=== PATIENT | female | born 1965 | race Caucasian/White ===

== ENCOUNTER 2016-02-27 07:07 | Inpatient (IN) | payer OTHER ==
[2016-01-22 14:52] VITALS: BMI 25.0
[~2016-02-27] VITALS: Ht 162.6 cm; Wt 67.7 kg
[2016-02-27] VITALS (9 sets, daily range): BP systolic 93–103; BP diastolic 53–64; PULSE 80–111; TEMP 36.1–37.8; O2SAT 93–100; Ht 162.6 cm; Wt 67.7 kg
[~2016-02-27 07:07] MED LIST: BACL10TA PO; CETI10TA84 PO; CHOL1000 PO; CLINDAMYCIN 600 MG/54 ML D5W 54 ML IV SCH; DOCU100C PO; GABA-113 PO; IBUP-1050 PO; LACTATED RINGER'S 1000ML IV SCH; LEVO150T PO; MELO7.5T5 PO; MORP30TA23 PO; SCOPOLAMINE 1.5 MG TDSY TD SCH; VICODIN PO
--- NOTE | 2016-02-27 07:31 | History & Physical Bridge Note ---
H&P Re-Evaluation Bridge Note: I have examined the patient, reviewed the History & Physical and in the interval since the performance of the History & Physical I have noted the following changes of clinical significance: No changes noted
--- NOTE | 2016-02-27 07:55 | HISTORY & PHYSICAL EXAMINATION ---
DATE OF ADMISSION: 02/27/2016 CHIEF COMPLAINT: Low back pain with bilateral leg pain going down to her feet. HISTORY OF PRESENT ILLNESS: Ms. Montgomery is a pleasant 51-year-old female who has a history significant for previous surgery performed by Dr. Bergman in 2011. She had done well initially after the surgery, but then started getting recurring symptoms. She takes oral morphine 30 mg 3 times daily for pain. She has been taking Ferris as well. She cannot stand for more than 5 minutes, she has failed conservative measures and at this point is considering surgical intervention. She denies any other numbness, tingling, paresthesias, or scottie weakness. PAST MEDICAL HISTORY: Significant for acid reflux, anemia, arthritis, GERD, heart murmur, hiatal hernia, thyroid disease, motion sickness. She had 3 previous C-sections, 3 lumpectomies, hysterectomy, 2 different foot surgeries in 2004 and 2015, back surgeries described above in 2011, hernia repair 2004 and 2011, hiatal hernia repair in 2011 as well. CURRENT MEDICATIONS: Include Neurontin, morphine, baclofen, hydrocodone, Synthroid, Meloxicam, Zyrtec, stool softener, ibuprofen. ALLERGIES: SHE HAS ALLERGIES TO SULFA, ASPIRIN, DIAZEPAM, TRIMETHOPRIM, PENICILLIN AND LATEX. REVIEW OF SYSTEMS: As per the patient's medical history. SOCIAL HISTORY: The patient is , 2 children. She denies any alcohol or illicit drug use. She typically smokes 5-8 cigarettes daily and has done so for the past 35 years. PHYSICAL EXAMINATION: GENERAL: She stands 5 feet 4, 150 pounds, stand with apparent level pelvis. Brijesh line is midline. Moves easily about the exam room. MUSCULOSKELETAL: Lower extremity motor exam reveals no focal atrophy. Strength and sensation both intact. Gait stable. Visual cox grossly intact. CARDIOVASCULAR EXAMINATION: Reveals no gross abnormalities. ABDOMEN: Soft, nontender. EXTREMITIES: Calves are soft and nontender. She has no nerve retention signs. Gait is stable. The patient is alert and oriented. Skin is intact with a well-healed midline incision. RADIOGRAPHIC IMAGES: Recent MRI of the lumbar spine is available for review. This reveals high signal in the L3-4 disc space. She is decompressed at the L4-5 and L5-S1 segments. There is left-sided disc herniation at L3-4 with inferior migration free fragment superimposed on moderate to severe baseline stenosis. ASSESSMENT: Adjacent level disease with breakdown at 3-4. PLAN: At this point, she has failed conservative measures, is considering surgical intervention. Surgically would consider performing lumbar decompression at L3-4 segment, removal of old hardware, and continuation of fusion from L3 back down to the sacrum as she is not solidly fused. Main benefit of this approach is significant chance for reduction of her radicular complaints. We discussed the risks of surgery as well. At this point would like to proceed with surgical intervention. JULIEN
[2016-02-27] MEDS ORDERED: ONDANSETRON INJ 2 MG/ML 2 ML VIAL ONE ×2 (08:15→12:43)
[2016-02-27] MEDS ORDERED: NEOSTIGMINE METHYLSULFATE 1 MG/ML 10ML VIAL ONE (08:15)
[2016-02-27] MEDS ORDERED: GLYCOPYRROLATE INJ 0.2 MG/ML VIAL ONE (08:15)
[2016-02-27] MEDS ORDERED: MIDAZOLAM HCL 1 MG/ML 2ML VIAL ONE (08:15)
[2016-02-27] MEDS ORDERED: ROCURONIUM BROMIDE 10 MG/ML 5 ML VIAL ONE ×2 (08:15→12:05)
[2016-02-27] MEDS ORDERED: PROPOFOL IV EMULSION 10 MG/ML 20 ML VIAL IV ONE (08:15)
[2016-02-27] MEDS ORDERED: DEXAMETHASONE SOD INJ 4 MG/ML VIAL ONE (08:15)
[2016-02-27] MEDS ORDERED: LIDOCAINE HCL 2% 2 ML VIAL (20MG/ML) ONE (08:15)
[2016-02-27] MEDS ORDERED: FENTANYL CITRATE INJ 50 MCG/1 ML 2 ML VIAL ONE ×2 (08:15→10:50)
[2016-02-27 08:45] LABS: BUN/CREATININE RATIO 16.5 (10-20); CALCIUM 9.1 mg/dl (8.5-10.1); CREATININE 0.68 mg/dl (0.60-1.20); POTASSIUM 3.9 mmol/L (3.5-5.1)
[2016-02-27] MEDS ORDERED: ALBUT/IPRATROP 3MG/0.5MG NEB 3 ML VIAL INH ONE (09:00)
[2016-02-27] MEDS ORDERED: ATROPINE SULFATE 0.1 MG/ML 5ML SYR IV PRN (09:15)
[2016-02-27] MEDS ORDERED: EpHEDrine SULFATE INJ 50 MG/ML AMP IV PRN (09:15)
[2016-02-27] MEDS ORDERED: FENTANYL CITRATE INJ 50 MCG/1 ML 2 ML VIAL IV PRN (09:15)
[2016-02-27] MEDS ORDERED: HYDROmorphone INJ 1 MG/ML SYR IV PRN ×2 (09:15→14:15)
[2016-02-27] MEDS ORDERED: ONDANSETRON INJ 2 MG/ML 2 ML VIAL IV PRN (09:15)
[2016-02-27] MEDS ORDERED: HYDROmorphone INJ 2 MG/ML SYR/VIAL ONE (10:09)
[2016-02-27] MEDS ORDERED: ESMOLOL HCL 10 MG/ML 10 ML VIAL ONE (10:38)
[2016-02-27] MEDS ORDERED: SODIUM CHLORIDE 0.9% INJ 10 ML VIAL ONE (10:38)
[2016-02-27] MEDS ORDERED: METOPROLOL TARTRATE 1 MG/ML VIAL ONE (10:38)
[2016-02-27] MEDS ORDERED: BUPIVACAINE/EPINEPHRINE 0.5% MPF 1:200,000 30 ML VIAL INJ ONE (10:46)
[2016-02-27] MEDS ORDERED: BACITRACIN 50000 UNIT VIAL IR ONE (12:44)
[2016-02-27] MEDS ORDERED: FLOSEAL HEMOSTATIC MATRIX 10ML TOP ONE (12:44)
--- NOTE | 2016-02-27 13:08 | [facility] Post Operative Brief Note ---
Immediate Operative Summary Operative Date Feb 27, 2016. Pre-Operative Diagnosis Adjacent level disease with breakdown at L3-L4 Post-Operative Diagnosis same as preop Procedure(s) Performed L3-L4 Lumbar Decompression; L4-S1 Hardware removal; L3-S1 Posterior reinstrumentation; L3-L4 and L4-L5 interbody fusion; use of Bone Morphogenetic Protein and Valerie allograft Surgeon Dr. Thompson Cell Tender Surgeon(s) Telly Wolf PA-C Estimated Blood Loss 300 ml Findings stenosis/non union Specimens A: Removed hardware
[2016-02-27] MEDS ORDERED: hydrOXYzine HCL 25 MG TAB PO PRN (13:15)
[2016-02-27] MEDS ORDERED: FAMOTIDINE 20 MG TAB PO PRN (13:15)
[2016-02-27] MEDS ORDERED: BISACODYL 10 MG SUPP PR PRN (13:15)
[2016-02-27] MEDS ORDERED: DO NOT ADMINISTER PNEUMOCOCCAL VACCINE PRN ×2 (13:15)
[2016-02-27] MEDS ORDERED: ACETAMINOPHEN IV 100 ML IV PRN (13:15)
[2016-02-27] MEDS ORDERED: LORAZEPAM INJ 0.5 MG in SYRINGE 0.75 ML IV PRN (13:15)
[2016-02-27] MEDS ORDERED: LORAZEPAM 0.5 MG TAB PO PRN (13:15)
[2016-02-27] MEDS ORDERED: SOD PHOSPHATE/SOD BIPHOSPHATE ENEMA 132 ML BTL PR PRN (13:15)
[2016-02-27] MEDS ORDERED: MAGNESIUM HYDROXIDE SUSP 30 ML UDC PO PRN (13:15)
[2016-02-27] MEDS ORDERED: DO NOT ADMINISTER FLU VACCINE PRN ×3 (13:15)
[2016-02-27] MEDS ORDERED: ALUMINUM/MAGNESIUM SUSP 30 ML UDC PO PRN (13:15)
[2016-02-27] MEDS ORDERED: PROMETHAZINE HCL INJ 12.5 MG in SODIUM CHLORIDE 0.9% 50ML 50 ML IV PRN (13:15)
[2016-02-27] MEDS ORDERED: NALOXONE HCL 0.4 MG/1 ML VIAL/CARP IV PRN ×2 (13:15)
[2016-02-27] MEDS ORDERED: HYDROmorphone HCL 0.5MG/ML 50 ML CASSETTE ONE (13:16)
--- NOTE | 2016-02-27 13:42 | DIAGNOSTIC IMAGING REPORT ---
LUMBAR SPINE, INTRAOPERATIVE FLUOROSCOPY HISTORY: L3-S1 decompression and fusion. FLUOROSCOPY TIME: 25 seconds. FINDINGS: Intraoperative fluoroscopy was provided for the lumbar spine. 2 fluoroscopic spot images were obtained. Posterior decompression and fusion from L3 through S1. There are pedicle screws at L3, L5, and S1. The hardware appears intact. IMPRESSION: Fluoroscopy provided for a L3-S1 posterior decompression and fusion. Electronically signed by: Ranjith Gustafson M.D. 02/27/2016 1:40 PM Dictated Date/Time: 02/27/2016 1:39 PM
[2016-02-27] MEDS: HYDROmorphone HCL 0.5MG/ML 50 ML CASSETTE IV PRN ×3 (14:15→22:53)
--- NOTE | 2016-02-27 14:16 | Anesthesiology Progress Note ---
Anesthesia Post Op Note Date & Time Feb 27, 2016 at 14:15 Vital Signs Pain Intensity: 3 Vital Signs Past 12 Hours Date Time Temp Pulse Resp B/P Pulse Ox O2 Delivery O2 Flow Rate FiO2 02/27/16 13:50 36.5 107/65 02/27/16 13:46 84 16 02/27/16 13:46 82 16 99 02/27/16 13:44 101/63 02/27/16 13:41 82 13 98 02/27/16 13:41 83 13 02/27/16 13:38 104/63 02/27/16 13:36 85 20 02/27/16 13:36 85 20 100 02/27/16 13:33 119/65 02/27/16 13:31 76 11 02/27/16 13:31 76 11 100 02/27/16 13:28 106/56 02/27/16 13:26 91 11 100 02/27/16 13:26 90 11 02/27/16 13:23 116/67 02/27/16 13:21 78 10 100 02/27/16 13:21 78 10 02/27/16 13:18 105/64 02/27/16 13:16 80 10 02/27/16 13:16 80 10 100 02/27/16 13:13 122/73 02/27/16 13:11 84 12 98 02/27/16 13:11 84 12 02/27/16 13:09 114/65 02/27/16 13:06 36.4 86 12 114/65 99 Mask 10 02/27/16 07:58 36.9 94 20 99/62 93 Room Air Notes Mental Status: alert / awake / arousable, participated in evaluation Pt Amnestic to Procedure: Yes Nausea / Vomiting: adequately controlled Pain: adequately controlled Airway Patency, RR, SpO2: stable & adequate BP & HR: stable & adequate Hydration State: stable & adequate Anesthetic Complications: no major complications apparent
--- NOTE | 2016-02-27 14:18 | OPERATIVE REPORT ---
DATE OF OPERATION: 02/27/2016 PREOPERATIVE DIAGNOSIS: Spinal stenosis. POSTOPERATIVE DIAGNOSIS: Same with evidence of nonunion, L4-L5. PROCEDURES PERFORMED: 1. Removal of posterior segmental instrumentation, L4-L5 and L5-S1. 2. Exploration of fusion, L4-L5 and L5-S1. 3. Revision decompression, medial facetectomy and foraminotomies, L3-L4 and L4-L5. 4. Posterior spinal fusion, L3-L4, L4-L5, and L5-S1. 5. Placement of posterior segmental instrumentation using Orthros rods and screws, L3 to S1 including crosslink. 6. Interbody fusion, L3-L4 and L4-L5. 7. Placement of PEEK cage 12 x 22 at L3-L4 and 10 x 22 at L4-L5. 8. Placement of locally harvested morcellized autograft in the posterior gutters. 9. Placement of Infuse collagen sponge combined with Mastergraft in the posterior gutters and Valerie bone graft in the interbody space. SURGEON: Dr. Flo Thompson. SENIOR BACK END JAVA DEVELOPER: Tarik Wolf PA-C. Due to the complex nature of the procedure, the entire surgery was performed with the care assistant of CANDACE Brown. The commercial real estate assistant, under direct supervision, was involved in the actual performance of all aspects of the surgical procedure including hemostasis, tissue retraction and incision, instrument management, patient positioning, and wound closure. ANESTHESIA: General. DISPOSITION: The patient awakened and taken to PACU in stable condition. HISTORY OF PATIENT'S PROBLEMS: This is a 51-year-old female that presents with above-mentioned diagnosis. After failing an extensive course of nonoperative care, she elected to undergo the above-mentioned procedures. Risks, benefits, pros, cons, and alternatives were outlined in detail preoperatively. DESCRIPTION OF PROCEDURE: The patient was met preoperatively, case discussed and all questions were addressed. At that point, the patient was taken back to operative suite and after undergoing successful general intubation by the department of anesthesia, she was placed in prone position on Nito table atop Kushal frame. All bony prominences were well padded and the eyes were inspected to ensure there was no external pressure placed upon them. At this point, the lumbar spine was prepped and draped in the normal sterile fashion. Sharp dissection with the assistance of Bovie cautery was performed down to and exposing the instrumentation at the L4, L5 and S1 levels bilaterally, including the lamina and transverse processes of L3. Hardware was removed without difficulty. There was marked evidence of instability at the L4-L5 level as the L4 screws had no purchase whatsoever within the bone. Then, after identifying nonunion at L4-L5, we performed a revision complete laminectomy of L4 and L3 from a caudal to cephalad fashion, addressing severe lateral recess and foraminal stenosis. Pedicle screws were then placed at L3, L5 and S1 levels bilaterally with the assistance of fluoroscopy as the L4 pedicles were violated from screw migration previously. Through a transforaminal approach on the right, a complete diskectomy of L4-L5 was performed, endplates curetted to subcortical bleeding bone and a 10 x 22 mm PEEK cage filled with Valerie bone grafting tapped into position. I then proceeded to L3-L4 and again through a transforaminal approach on the right, a complete diskectomy was performed, endplates curetted to subcortical bone and a 12 x 22 mm PEEK cage filled with Valerie bone grafting tapped into position. Appropriate size rods were contoured, placed and then compressed, and locked into final position bilaterally and transverse processes of L3, L4, L5 and S1 burred to subcortical bleeding bone. Infuse collagen sponge combined with Mastergraft and locally harvested morcellized autograft was placed in the posterior gutters, crosslink locked into position, 7 flat ALEXANDER drain inserted. Incision was closed with 1-0 Vicryl in the fascia, 2-0 Vicryl subcutaneously, and 4-0 Monocryl for final skin closure. Steri-Strips and sterile dressing placed. The patient was awakened and taken to PACU in stable condition. I attest to the content of the Intraoperative Record and any orders documented therein. Any exceptions are noted below. IRISHD
[2016-02-27] MEDS: SODIUM CHLORIDE 0.9% 1000ML 1,000 ML IV SCH (14:43)
[2016-02-27] MEDS ORDERED: INFLUENZA ADMINISTRATION CHARGE ONE (15:00)
[2016-02-27] MEDS ORDERED: INFLUENZA VIRUS QUAD VACCINE 0.5 ML SYR IM. ONE (15:00)
[2016-02-27] MEDS: LACTATED RINGER'S 1000ML 1,000 ML IV SCH ×2 (15:39→19:53)
[2016-02-27] MEDS: GABAPENTIN 300 MG CAP PO SCH ×2 (15:45→20:51)
[2016-02-27] MEDS: CHECK SCOPOLAMINE PATCH PLACEMENT SCH ×2 (15:47→23:24)
[2016-02-27] MEDS: BACLOFEN TAB 20 MG TAB PO SCH ×2 (17:15→20:52)
[2016-02-27] MEDS: CLINDAMYCIN IV 600 MG in DEXTROSE 5% ADD-VANTAGE 50ML 50 ML IV SCH (17:16)
[2016-02-27] MEDS: DOCUSATE SODIUM/SENNA 50/8.6MG TAB PO SCH (20:54)
[2016-02-27] MEDS: CETIRIZINE HCL 10 MG TAB PO SCH (21:36)
[2016-02-27] MEDS: ACETAMINOPHEN 500 MG TAB PO PRN (23:24)
[2016-02-28] VITALS (13 sets, daily range): BP systolic 80–107; BP diastolic 40–70; PULSE 117–125; TEMP 37.1–38.3; O2SAT 90–94
[2016-02-28] MEDS: CLINDAMYCIN IV 600 MG in DEXTROSE 5% ADD-VANTAGE 50ML 50 ML IV SCH (01:53)
[2016-02-28] MEDS ORDERED: NURSING VERBAL MED ORDER ONE (02:00)
[2016-02-28] MEDS: SODIUM CHLORIDE 0.9% 1000ML 1,000 ML IV SCH (02:40)
[2016-02-28] MEDS: LEVOTHYROXINE 150 MCG TAB PO SCH (05:58)
[2016-02-28] MEDS ORDERED: DC PCA ONE (06:00)
[2016-02-28] MEDS ORDERED: HYDROmorphone INJ 0.5 MG/0.5 ML SYR IV PRN ×2 (06:00→09:49)
[2016-02-28] MEDS: CHECK SCOPOLAMINE PATCH PLACEMENT SCH ×3 (07:29→23:20)
[2016-02-28 08:02] LABS: BASO % 0.2 %; BASO ABS # 0.02 K/uL (0-0.2); COMPLETE YES; EOS % 0.1 %; HEMATOCRIT 32.7 % (37-47); IG% 0.3 %; LYMPH % 11.5 %; LYMPH ABS # 1.27 K/uL (1.2-3.4); MEAN CELL VOLUME 89.1 fL (80-100); MEAN CORPUSCULAR HEMOGLOBIN 29.4 pg (25-34); MEAN PLATELET VOLUME 10.8 fL (7.4-10.4); MONO % 10.9 %; PLATELET COUNT 266 K/uL (130-400); RED BLOOD COUNT 3.67 M/uL (4.2-5.4); WHITE BLOOD COUNT 11.08 K/uL (4.8-10.8)
[2016-02-28] MEDS ORDERED: SODIUM CHLORIDE 0.9% 1000ML 1,000 ML IV SCH ×2 (08:15→08:45)
[2016-02-28 08:27] LABS: BUN/CREATININE RATIO 10.9 (10-20); CALCIUM 8.6 mg/dl (8.5-10.1); CREATININE 0.57 mg/dl (0.60-1.20); POTASSIUM 3.9 mmol/L (3.5-5.1)
[2016-02-28] MEDS: MoRPHine SULFATE CR 15 MG TAB (MS CONTIN) PO SCH ×2 (08:49→20:56)
[2016-02-28] MEDS ORDERED: MoRPHine SULFATE IR 15 MG TAB (IMMEDIATE RELEASE) PO SCH (09:00)
[2016-02-28] MEDS ORDERED: GABAPENTIN 300 MG CAP PO SCH (09:00)
[2016-02-28] MEDS ORDERED: BACLOFEN 10 MG TAB PO SCH (09:00)
[2016-02-28] MEDS ORDERED: NURSING DECISION MEDICATION ORDER SCH (09:00)
--- NOTE | 2016-02-28 09:00 | DIAGNOSTIC IMAGING REPORT ---
CHEST ONE VIEW PORTABLE CLINICAL HISTORY: Hypotension. Postop sepsis. COMPARISON STUDY: No previous studies for comparison. FINDINGS: The heart is normal in size. There is perihilar airspace opacities.. There are minor left basilar airspace opacities. There is no failure. There are no pleural effusions.[ IMPRESSION: Right perihilar and left basal airspace opacities, atelectatic versus inflammatory. Clinical and radiographic follow-up is recommended Electronically signed by: Will Camacho M.D. 02/28/2016 8:58 AM Dictated Date/Time: 02/28/2016 8:57 AM
--- NOTE | 2016-02-28 10:01 | History and Physical ---
History & Physical Date & Time of Service: Feb 28, 2016 at 10:00 Chief Complaint: Spinal Stenosis Primary Care Physician: Sae Gregg M.D. History of Present Illness Source: patient, hospital records Social History Smoking Status: Current Every Day Smoker Allergies Coded Allergies: Aspirin (Verified Allergy, Unknown, THROAT SWELLING, HIVES, ITCHING, ) BEE STING (Verified Allergy, Unknown, ANAPHYLAXIS, 02/27/16) Cyclobenzaprine (Verified Allergy, Unknown, MUSCLE SPASMS, 02/27/16) Diazepam (Verified Allergy, Unknown, GETS VIOLENT, 02/27/16) Latex1 -Allergic Contact Dermititis (Verified Allergy, Unknown, CONTACT - REDNESS RASH, 02/27/16) Penicillins (Verified Allergy, Unknown, ITCHING HIVES THROAT SWELLING, ) Prednisone (Verified Allergy, Unknown, FELT NUTS, 02/27/16) Shellfish (Verified Allergy, Unknown, SWELLING ITCHING THROAT HIVES, ) Sulfa Antibiotics (Verified Allergy, Unknown, HIVES SWELLING THROAT ITCHING, 02/27/16) Chlorpheniramine (Verified Adverse Reaction, Unknown, HYPERACTIVITY, ) Phenylephrine (Verified Adverse Reaction, Unknown, HYPERACTIVITY, 02/27/16) Phenylpropanolamine (Verified Adverse Reaction, Unknown, HYPERACTIVITY, ) Phenyltoloxamine (Verified Adverse Reaction, Unknown, HYPERACTIVITY, ) Home Medications Scheduled Baclofen (Lioresal), 20 MG PO TID Cetirizine (Zyrtec), 10 MG PO QPM Cholecalciferol (Vitamin D3), 1 TAB PO QAM Docusate Sodium (Stool Softener), 100 MG PO QAM Gabapentin (Neurontin), 900 MG PO TID Ibuprofen (Advil), 1,000 MG PO PRN Levothyroxine Sodium (Synthroid), 150 MCG PO QAM Meloxicam (Mobic), 15 MG PO NOON Morphine Sulfate (Ms Contin), 30 MG PO Q12 [Vicodin], 1 TAB PO Q6H Physical Exam Vital Signs Date Time Temp Pulse Resp B/P Pulse Ox O2 Delivery O2 Flow Rate FiO2 02/28/16 07:48 37.1 122 22 80/40 94 Nasal Cannula 3.0 02/28/16 07:15 94 Nasal Cannula 3.0 02/28/16 06:05 92 Nasal Cannula 3.0 02/28/16 03:10 37.6 119 16 106/63 90 Room Air 02/28/16 01:46 37.5 02/28/16 00:46 38.3 02/27/16 23:15 Room Air 02/27/16 22:45 37.8 111 16 103/64 96 Nasal Cannula 1.0 02/27/16 19:04 37.3 104 16 97/53 99 Nasal Cannula 3.0 02/27/16 17:08 36.8 90 16 102/55 100 Nasal Cannula 3.0 02/27/16 16:11 36.8 86 20 93/59 98 Nasal Cannula 3.0 02/27/16 15:30 100 Nasal Cannula 3.0 02/27/16 15:14 36.1 104 30 98/54 100 Nasal Cannula 3.0 02/27/16 14:40 36.2 80 24 101/64 98 Nasal Cannula 3.0 02/27/16 14:22 97 Nasal Cannula 3.0 02/27/16 14:17 36.7 88 16 96/60 98 Nasal Cannula 3.0 02/27/16 13:50 36.5 107/65 02/27/16 13:46 84 16 02/27/16 13:46 82 16 99 02/27/16 13:44 101/63 02/27/16 13:41 82 13 98 02/27/16 13:41 83 13 02/27/16 13:38 104/63 02/27/16 13:36 85 20 02/27/16 13:36 85 20 100 02/27/16 13:33 119/65 02/27/16 13:31 76 11 02/27/16 13:31 76 11 100 02/27/16 13:28 106/56 02/27/16 13:26 91 11 100 02/27/16 13:26 90 11 02/27/16 13:23 116/67 02/27/16 13:21 78 10 100 02/27/16 13:21 78 10 02/27/16 13:18 105/64 02/27/16 13:16 80 10 02/27/16 13:16 80 10 100 02/27/16 13:13 122/73 02/27/16 13:11 84 12 98 02/27/16 13:11 84 12 02/27/16 13:09 114/65 02/27/16 13:06 36.4 86 12 114/65 99 Mask 10 Diagnostics Laboratory Results Results Past 24 Hours Test 02/28/16 07:20 02/28/16 08:52 Range/Units White Blood Count 11.08 4.8-10.8 K/uL Red Blood Count 3.67 4.2-5.4 M/uL Hemoglobin 10.8 12.0-16.0 g/dL Hematocrit 32.7 37-47 % Mean Corpuscular Volume 89.1 80-100 fL Mean Corpuscular Hemoglobin 29.4 25-34 pg Mean Corpuscular Hemoglobin Concent 33.0 32-36 g/dl Platelet Count 266 130-400 K/uL Mean Platelet Volume 10.8 7.4-10.4 fL Neutrophils (%) (Auto) 77.0 % Lymphocytes (%) (Auto) 11.5 % Monocytes (%) (Auto) 10.9 % Eosinophils (%) (Auto) 0.1 % Basophils (%) (Auto) 0.2 % Neutrophils # (Auto) 8.54 1.4-6.5 K/uL Lymphocytes # (Auto) 1.27 1.2-3.4 K/uL Monocytes # (Auto) 1.21 0.11-0.59 K/uL Eosinophils # (Auto) 0.01 0-0.5 K/uL Basophils # (Auto) 0.02 0-0.2 K/uL RDW Standard Deviation 45.0 36.4-46.3 fL RDW Coefficient of Variation 13.8 11.5-14.5 % Immature Granulocyte % (Auto) 0.3 % Immature Granulocyte # (Auto) 0.03 0.00-0.02 K/uL Sodium Level 140 136-145 mmol/L Potassium Level 3.9 3.5-5.1 mmol/L Chloride Level 101 98-107 mmol/L Carbon Dioxide Level 30 21-32 mmol/L Anion Gap 9.0 3-11 mmol/L Blood Urea Nitrogen 6 7-18 mg/dl Creatinine 0.57 0.60-1.20 mg/dl Est Creatinine Clear Calc Drug Dose 109.2 ml/min Estimated GFR () 123.5 Estimated GFR (Non- 106.6 BUN/Creatinine Ratio 10.9 10-20 Random Glucose 104 70-99 mg/dl Calcium Level 8.6 8.5-10.1 mg/dl Lactic Acid Level 0.7 0.4-2.0 mmol/L Microbiology Results 02/28/16 Blood Culture, Received Pending 02/28/16 Blood Culture, Received Pending Impression Advanced Directives Existing Advance Directive: No Existing Living Will: No Existing Power of B2B Sales Representative: No VTE Prophylaxis VTE Risk Assessment Done? Y/N: Yes Risk Level: Low
--- NOTE | 2016-02-28 10:24 | Medical Consult ---
Consultation Date of Consultation: Feb 28, 2016. Attending Physician: Flo Thompson D.O. Reason for Consultation: Management of medical conditions History of Present Illness 51 Years old female has known past medical history of Hypothyroidism, Chronic DJD, Anemia, GERD underwent following surgical procedure by Dt. Thompson on 2016. L3-L4 Lumbar Decompression; L4-S1 Hardware removal; L3-S1 Posterior re- instrumentation; L3-L4 and L4-L5 interbody fusion; use of Bone Morphogenetic Protein and Valerie allograft Patient has been c/o lower back pain and spasms over night and it is radiating to the left lower extremity. She has been very uncomfortable and was found to have fever and low blood pressure in AM today. Denies any chest pain/pressure, SOB or diaphoresis. Could not sleep well last night due to back pain & spasms. 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 Social History Smoking Status: Current Every Day Smoker Smokeless Tobacco Use: No Alcohol Use: none Drug Use: none Marital Status: Housing Status: lives with family Allergies Coded Allergies: Aspirin (Verified Allergy, Unknown, THROAT SWELLING, HIVES, ITCHING, ) BEE STING (Verified Allergy, Unknown, ANAPHYLAXIS, 02/27/16) Cyclobenzaprine (Verified Allergy, Unknown, MUSCLE SPASMS, 02/27/16) Diazepam (Verified Allergy, Unknown, GETS VIOLENT, 02/27/16) Latex1 -Allergic Contact Dermititis (Verified Allergy, Unknown, CONTACT - REDNESS RASH, 02/27/16) Penicillins (Verified Allergy, Unknown, ITCHING HIVES THROAT SWELLING, ) Prednisone (Verified Allergy, Unknown, FELT NUTS, 02/27/16) Shellfish (Verified Allergy, Unknown, SWELLING ITCHING THROAT HIVES, ) Sulfa Antibiotics (Verified Allergy, Unknown, HIVES SWELLING THROAT ITCHING, 02/27/16) Chlorpheniramine (Verified Adverse Reaction, Unknown, HYPERACTIVITY, ) Phenylephrine (Verified Adverse Reaction, Unknown, HYPERACTIVITY, 02/27/16) Phenylpropanolamine (Verified Adverse Reaction, Unknown, HYPERACTIVITY, ) Phenyltoloxamine (Verified Adverse Reaction, Unknown, HYPERACTIVITY, ) Current Inpatient Medications Current Inpatient Medications Medications (Trade) Dose Ordered Sig/Autumn Route Start Time Stop Time Status Last Admin Dose Admin Miscellaneous (Remove Transderm-Scop Patch) 1 ea Q72H N/A 03/01/16 06:00 03/01/16 06:01 Miscellaneous Information (Check Scopolamine Patch Placement) 1 ea QS N/A 02/27/16 16:00 02/29/16 05:59 02/28/16 07:29 1 EA Ondansetron HCl (Zofran Inj) 4 mg Q6H PRN IV 02/27/16 13:15 03/28/16 13:14 Metoclopramide HCl 10 mg 10 mg Q6H PRN IV 02/27/16 13:15 03/28/16 13:14 Lorazepam/Syringe (Ativan Inj/ Syringe) 1 ml @ 1 mls/min Q8H PRN IV 02/27/16 13:15 03/28/16 13:14 Pneumococcal Polysaccharide Vaccine 1 ea PRN PRN N/A 02/27/16 13:15 03/28/16 13:14 Influenza Virus Vacc Triv Types A&B 1 ea PRN PRN N/A 02/27/16 13:15 03/28/16 13:14 Polyethylene (Miralax Powder Packet) 17 gm Q6 PO 02/29/16 06:00 03/30/16 05:59 Bisacodyl (Dulcolax Supp) 10 mg DAILY PRN MN 02/27/16 13:15 03/28/16 13:14 Magnesium Hydroxide (Milk Of Magnesia Susp) 30 ml DAILY PRN PO 02/27/16 13:15 03/28/16 13:14 Oxycodone HCl (Roxicodone Immediate Rel Tab) 5-10mg prn moderate to sev... Q4H PRN PO 02/28/16 06:00 03/13/16 05:59 Acetaminophen 1000 mg 1,000 mg Q8H PRN PO 02/27/16 13:15 03/28/16 13:14 02/27/16 23:24 1,000 MG Acetaminophen (Ofirmev Iv) 100 ml @ 400 mls/hr Q8H PRN IV 02/27/16 13:15 03/28/16 13:14 Naloxone HCl (Narcan Inj) 0.1 mg Q5M PRN IV 02/27/16 13:15 03/28/16 13:14 Senna/Docusate Sodium (Senokot S Tab) 2 tab HS PO 02/27/16 21:00 03/28/16 20:59 02/27/16 20:54 2 TAB Sodium Biphosphate/ Sodium Phosphate (Fleet Enema) 132 ml ONE PRN MN 02/27/16 13:15 03/28/16 13:14 Hydroxyzine HCl (Vistaril Tab) 25 mg Q8H PRN PO 02/27/16 13:15 03/28/16 13:14 Al Hydroxide/Mg Hydroxide (Maalox Susp) 30 ml Q6H PRN PO 02/27/16 13:15 03/28/16 13:14 Famotidine (Pepcid Tab) 20 mg Q12 PRN PO 02/27/16 13:15 03/28/16 13:14 Diphenhydramine HCl (Benadryl Cap) 25 mg Q6H PRN PO 02/27/16 13:15 03/28/16 13:14 Cetirizine HCl (zyrTEC TAB) 10 mg QPM PO 02/27/16 21:00 03/28/16 20:59 02/27/16 21:36 10 MG Levothyroxine Sodium (Synthroid Tab) 150 mcg DAILYBB PO 02/28/16 06:00 03/29/16 05:59 02/28/16 05:58 150 MCG Morphine Sulfate (Oramorph Sr Tab) 30 mg Q12 PO 02/28/16 09:00 03/13/16 08:59 02/28/16 08:49 30 MG Ketorolac Tromethamine 30 mg 30 mg Q6H PRN IV 02/28/16 08:00 Sodium Chloride (Nss 1000ml) 1,000 ml @ 100 mls/hr Q10H IV 02/28/16 08:45 02/28/16 12:38 02/28/16 08:45 200 MLS/HR Baclofen (Lioresal Tab) 10 mg TID PO 02/28/16 09:00 03/29/16 08:59 02/28/16 09:00 10 MG Gabapentin (Neurontin Cap) 600 mg TID PO 02/28/16 09:00 03/29/16 08:59 02/28/16 09:00 600 MG Hydromorphone HCl (Dilaudid Inj) 0.5 mg Q4 PRN IV 02/28/16 09:49 03/13/16 09:48 Review of Systems See HPI for pertinent positives & negatives. A total of 10 systems reviewed and were otherwise negative. Physical Exam Date Time Temp Pulse Resp B/P Pulse Ox O2 Delivery O2 Flow Rate FiO2 02/28/16 07:48 37.1 122 22 80/40 94 Nasal Cannula 3.0 02/28/16 07:15 94 Nasal Cannula 3.0 02/28/16 06:05 92 Nasal Cannula 3.0 02/28/16 03:10 37.6 119 16 106/63 90 Room Air 02/28/16 01:46 37.5 02/28/16 00:46 38.3 02/27/16 23:15 Room Air 02/27/16 22:45 37.8 111 16 103/64 96 Nasal Cannula 1.0 02/27/16 19:04 37.3 104 16 97/53 99 Nasal Cannula 3.0 02/27/16 17:08 36.8 90 16 102/55 100 Nasal Cannula 3.0 02/27/16 16:11 36.8 86 20 93/59 98 Nasal Cannula 3.0 02/27/16 15:30 100 Nasal Cannula 3.0 02/27/16 15:14 36.1 104 30 98/54 100 Nasal Cannula 3.0 02/27/16 14:40 36.2 80 24 101/64 98 Nasal Cannula 3.0 02/27/16 14:22 97 Nasal Cannula 3.0 02/27/16 14:17 36.7 88 16 96/60 98 Nasal Cannula 3.0 02/27/16 13:50 36.5 107/65 02/27/16 13:46 84 16 02/27/16 13:46 82 16 99 02/27/16 13:44 101/63 02/27/16 13:41 82 13 98 02/27/16 13:41 83 13 02/27/16 13:38 104/63 02/27/16 13:36 85 20 02/27/16 13:36 85 20 100 02/27/16 13:33 119/65 02/27/16 13:31 76 11 02/27/16 13:31 76 11 100 02/27/16 13:28 106/56 02/27/16 13:26 91 11 100 02/27/16 13:26 90 11 02/27/16 13:23 116/67 02/27/16 13:21 78 10 100 02/27/16 13:21 78 10 02/27/16 13:18 105/64 02/27/16 13:16 80 10 02/27/16 13:16 80 10 100 02/27/16 13:13 122/73 02/27/16 13:11 84 12 98 02/27/16 13:11 84 12 02/27/16 13:09 114/65 02/27/16 13:06 36.4 86 12 114/65 99 Mask 10 General Appearance: WD/WN, + moderate distress (Due to pain & spasms.) Head: normocephalic, atraumatic Eyes: normal inspection, PERRL, EOMI, sclerae normal ENT: normal ENT inspection, hearing grossly normal, TMs normal, pharynx normal Neck: supple, no adenopathy, thyroid normal, no JVD, trachea midline Respiratory/Chest: chest non-tender, lungs clear, normal breath sounds, no respiratory distress, no accessory muscle use Cardiovascular: no edema, no gallop, no JVD, normal peripheral pulses, + tachycardia Abdomen/GI: normal bowel sounds, non tender, soft, no organomegaly Back: + pertinent finding (Could not do back examination as she could not sit for me.) Extremities/Musculoskelatal: normal inspection, no calf tenderness, no pedal edema Neurologic/Psych: alert, oriented x 3, + pertinent finding (Pain, touch in lower extermities is intact. Can move all 4 extremities.) Skin: normal color, warm/dry, no rash Lymphatic: no adenopathy Laboratory Results Last 24 Hours Test 02/28/16 07:20 02/28/16 08:52 White Blood Count 11.08 K/uL Red Blood Count 3.67 M/uL Hemoglobin 10.8 g/dL Hematocrit 32.7 % Mean Corpuscular Volume 89.1 fL Mean Corpuscular Hemoglobin 29.4 pg Mean Corpuscular Hemoglobin Concent 33.0 g/dl Platelet Count 266 K/uL Mean Platelet Volume 10.8 fL Neutrophils (%) (Auto) 77.0 % Lymphocytes (%) (Auto) 11.5 % Monocytes (%) (Auto) 10.9 % Eosinophils (%) (Auto) 0.1 % Basophils (%) (Auto) 0.2 % Neutrophils # (Auto) 8.54 K/uL Lymphocytes # (Auto) 1.27 K/uL Monocytes # (Auto) 1.21 K/uL Eosinophils # (Auto) 0.01 K/uL Basophils # (Auto) 0.02 K/uL RDW Standard Deviation 45.0 fL RDW Coefficient of Variation 13.8 % Immature Granulocyte % (Auto) 0.3 % Immature Granulocyte # (Auto) 0.03 K/uL Sodium Level 140 mmol/L Potassium Level 3.9 mmol/L Chloride Level 101 mmol/L Carbon Dioxide Level 30 mmol/L Anion Gap 9.0 mmol/L Blood Urea Nitrogen 6 mg/dl Creatinine 0.57 mg/dl Est Creatinine Clear Calc Drug Dose 109.2 ml/min Estimated GFR () 123.5 Estimated GFR (Non- 106.6 BUN/Creatinine Ratio 10.9 Random Glucose 104 mg/dl Calcium Level 8.6 mg/dl Lactic Acid Level 0.7 mmol/L Assessment & Plan Hypotension/Tachycardia: Likely due to combination of Pain/spasms, Fever & Anxiety. -Continue with IVF. -Re-check H/H in afternoon again. -Adjusted dose of Dilaudid as well other medications which can cause hypotension. -Blood cultures done -Will monitor for any infectious source. S/P Lumbar Decompression Surgery: POD # 1. -Pain management under monitoring so it does not cause hypotension -PT/OT as per Surgical team -Monitor H/H Hypothyroidism: Continue Levoxyl. History GERD: Continue PPI. Code Status: FULL CODE DVT Prophylaxis: per Surgical team. Thank you for this consultation. We will follow the patient with you during their hospital stay. You can reach a member of the [facility] Team 06/09 via pager @ [phone]. Patient will be followed by Dr. Bell.
[2016-02-28] MEDS: NICOTINE 14 MG/24 HR TDSY TD SCH (11:37)
[2016-02-28] MEDS: KETOROLAC TROMETHAMINE 30 MG/ML VIAL IV PRN ×2 (12:24→19:24)
[2016-02-28] MEDS: BACLOFEN 10 MG TAB PO SCH ×3 (12:26→19:26)
[2016-02-28] MEDS: GABAPENTIN 300 MG CAP PO SCH ×3 (12:27→20:56)
[2016-02-28 14:30] LABS: HEMATOCRIT 31.3 % (37-47)
[2016-02-28] MEDS: OXYCODONE HCL IR 5 MG TAB (IMMEDIATE RELEASE) PO PRN ×2 (16:33→23:19)
[2016-02-28] MEDS: CETIRIZINE HCL 10 MG TAB PO SCH (21:15)
[2016-02-28] MEDS: DOCUSATE SODIUM/SENNA 50/8.6MG TAB PO SCH (21:15)
[2016-02-28] MEDS: ACETAMINOPHEN 500 MG TAB PO PRN (23:20)
[2016-02-29] VITALS (7 sets, daily range): BP systolic 113–128; BP diastolic 74–83; PULSE 107–127; TEMP 37–38; O2SAT 86–97
[2016-02-29] MEDS: POLYETHYLENE (MIRALAX) 17 GM PACK PO SCH ×4 (05:31→23:39)
[2016-02-29] MEDS: LEVOTHYROXINE 150 MCG TAB PO SCH (05:31)
[2016-02-29 05:53] LABS: BASO % 0.2 %; BASO ABS # 0.02 K/uL (0-0.2); COMPLETE YES; EOS % 1.1 %; HEMATOCRIT 31.3 % (37-47); IG% 0.4 %; LYMPH % 17.6 %; LYMPH ABS # 1.88 K/uL (1.2-3.4); MEAN CELL VOLUME 92.1 fL (80-100); MEAN CORPUSCULAR HGB CONC 32.6 g/dl (32-36); MONO % 10.9 %; NEUT % 69.8 %; PLATELET COUNT 250 K/uL (130-400); WHITE BLOOD COUNT 10.69 K/uL (4.8-10.8)
[2016-02-29 06:24] LABS: BUN/CREATININE RATIO 9.8 (10-20); CALCIUM 8.5 mg/dl (8.5-10.1); CREATININE 0.58 mg/dl (0.60-1.20); POTASSIUM 3.8 mmol/L (3.5-5.1)
[2016-02-29] MEDS: ONDANSETRON INJ 2 MG/ML 2 ML VIAL IV PRN ×2 (07:49→14:24)
[2016-02-29] MEDS: BACLOFEN 10 MG TAB PO SCH ×4 (08:30→19:24)
[2016-02-29] MEDS ORDERED: PROMETHAZINE HCL INJ 12.5 MG in SODIUM CHLORIDE 0.9% 50ML 50 ML IV ONE (09:00)
--- NOTE | 2016-02-29 09:19 | PROGRESS NOTE ---
DATE: 02/29/2016 Postop day 2. Back pain is controlled. Denies any leg pain at this time. Vital signs stable. T-max 38.0. ALEXANDER drained 60 mL. Hematocrit this a.m. is 31.3. On exam, she is somewhat nauseated today, but has good strength to testing in lower extremities. ASSESSMENT: Status post revision decompression and fusion lumbar spine. PLAN: At this time, we are going to increase her IV fluids, as she has been unable to eat and struggled with some emesis this morning. We will attempt physical therapy later this afternoon. Ideally, we will be able to change her dressing and discontinue drain Tuesday with hopes of returning home early next week.
[2016-02-29] MEDS: NICOTINE 14 MG/24 HR TDSY TD SCH (09:20)
[2016-02-29] MEDS: SODIUM CHLORIDE 0.9% 1000ML 1,000 ML IV SCH ×2 (09:20→15:29)
[2016-02-29] MEDS: GABAPENTIN 300 MG CAP PO SCH ×4 (10:22→21:29)
[2016-02-29] MEDS: MoRPHine SULFATE CR 15 MG TAB (MS CONTIN) PO SCH ×2 (11:53→21:34)
[2016-02-29] MEDS: METOCLOPRAMIDE HCL INJ 5 MG/ML 2 ML VIAL IV PRN ×2 (12:46→19:24)
[2016-02-29] MEDS: ONDANSETRON INJ 2 MG/ML 2 ML VIAL IV SCH ×2 (16:17→23:41)
--- NOTE | 2016-02-29 17:25 | Progress Note ---
Medicine Progress Note Date & Time of Visit: Feb 29, 2016 at 15:33. Subjective scheduled Zofran, cont IVF per Dr. Thompson order for 2 L this morning no increased work of breathing denies chest pain NVI bilat LEs yesterday back spasming was her main issue today it has been the intolerance to PO and vomiting denies back pain today Tm 38C could not tolerate PT no BM but passing flatus Objective Last 8 Hrs Date Time Temp Pulse Resp B/P Pulse Ox O2 Delivery O2 Flow Rate FiO2 02/29/16 14:54 38.0 127 18 120/76 86 Room Air 02/29/16 12:52 107 02/29/16 07:44 37.1 117 18 113/74 97 Room Air Physical Exam: GEN: WNWD, in no acute distress, alert and appropriate HEENT: NC/AT, normal sclerae CARDIO: tachy, S1/2 heard without m/g/r LUNGS: CTA bilaterally, no crackles, rales or wheezes, good diaphragmatic excursion ABD: soft, non-tender, non-distended, no rebound or guarding EXTREMITY: RP and DP palpable 2+ bilat, no LE swelling or edema, extremities are warm and well-perfused NEURO: extremities are NVI MUSC: good muscle tone, moves all extremities equally SKIN: warm and dry Laboratory Results: Last 24 Hours Test 02/29/16 05:28 White Blood Count 10.69 K/uL Red Blood Count 3.40 M/uL Hemoglobin 10.2 g/dL Hematocrit 31.3 % Mean Corpuscular Volume 92.1 fL Mean Corpuscular Hemoglobin 30.0 pg Mean Corpuscular Hemoglobin Concent 32.6 g/dl Platelet Count 250 K/uL Mean Platelet Volume 11.0 fL Neutrophils (%) (Auto) 69.8 % Lymphocytes (%) (Auto) 17.6 % Monocytes (%) (Auto) 10.9 % Eosinophils (%) (Auto) 1.1 % Basophils (%) (Auto) 0.2 % Neutrophils # (Auto) 7.46 K/uL Lymphocytes # (Auto) 1.88 K/uL Monocytes # (Auto) 1.17 K/uL Eosinophils # (Auto) 0.12 K/uL Basophils # (Auto) 0.02 K/uL RDW Standard Deviation 47.0 fL RDW Coefficient of Variation 14.1 % Immature Granulocyte % (Auto) 0.4 % Immature Granulocyte # (Auto) 0.04 K/uL Sodium Level 144 mmol/L Potassium Level 3.8 mmol/L Chloride Level 107 mmol/L Carbon Dioxide Level 30 mmol/L Anion Gap 7.0 mmol/L Blood Urea Nitrogen 6 mg/dl Creatinine 0.58 mg/dl Est Creatinine Clear Calc Drug Dose 107.3 ml/min Estimated GFR () 122.8 Estimated GFR (Non- 106.0 BUN/Creatinine Ratio 9.8 Random Glucose 106 mg/dl Calcium Level 8.5 mg/dl Assessment & Plan Tachycardia: Likely due to combination of Pain/spasms, Fever & Anxiety. She is also severely nautious today with frequent bouts of dry heaving. -Continue with IVF. -H/H is stable -pain control meds PRN--she is on her long acting morphine with breakthrough Lortab and feels pain is controlled at this time -Blood cultures -pending from yesterday when patient was hypotensive, tachy and febrile. -Will monitor for any infectious source, however, with no lower back pain, this is less likely -also considered PE post-op, however, she is not working to breathe, denies any chest pain, and has no calf tenderness with many other reasons to have tachycardia at this time Nausea: scheduled Zofran to stay ahead of the nausea. Reglan PRN. Phenergan IV tried this morning and didn't seem to work. S/P Lumbar Decompression Surgery: POD # 2. -Pain management under monitoring so it does not cause hypotension-continues on Gabapentin, Baclofen, Morphine and vicodin -PT/OT as per Surgical team -Monitor H/H Hypothyroidism: Continue Levothyroxine History GERD: Continue PPI. Code Status: FULL CODE DVT Prophylaxis: SCDs, however, would recommend chemoprophylaxis when surgery OK with this from a bleeding standpoint. Thank you for this consultation. We will follow the patient with you during their hospital stay. You can reach a member of the [facility] Hospitalist Team 06/09 via pager @ . Current Inpatient Medications: Current Inpatient Medications Medications (Trade) Dose Ordered Sig/Autumn Route Start Time Stop Time Status Last Admin Dose Admin Miscellaneous (Remove Transderm-Scop Patch) 1 ea Q72H N/A 03/01/16 06:00 03/01/16 06:01 Ondansetron HCl (Zofran Inj) 4 mg Q6H PRN IV 02/27/16 13:15 03/28/16 13:14 02/29/16 14:24 4 MG Metoclopramide HCl 10 mg 10 mg Q6H PRN IV 02/27/16 13:15 03/28/16 13:14 02/29/16 12:46 10 MG Lorazepam/Syringe (Ativan Inj/ Syringe) 1 ml @ 1 mls/min Q8H PRN IV 02/27/16 13:15 03/28/16 13:14 Pneumococcal Polysaccharide Vaccine 1 ea PRN PRN N/A 02/27/16 13:15 03/28/16 13:14 Influenza Virus Vacc Triv Types A&B 1 ea PRN PRN N/A 02/27/16 13:15 03/28/16 13:14 Polyethylene (Miralax Powder Packet) 17 gm Q6 PO 02/29/16 06:00 03/30/16 05:59 02/29/16 05:31 17 GM Bisacodyl (Dulcolax Supp) 10 mg DAILY PRN ND 02/27/16 13:15 03/28/16 13:14 Magnesium Hydroxide (Milk Of Magnesia Susp) 30 ml DAILY PRN PO 02/27/16 13:15 03/28/16 13:14 Oxycodone HCl (Roxicodone Immediate Rel Tab) 5-10mg prn moderate to sev... Q4H PRN PO 02/28/16 06:00 03/13/16 05:59 02/28/16 23:19 5 MG Acetaminophen 1000 mg 1,000 mg Q8H PRN PO 02/27/16 13:15 03/28/16 13:14 02/28/16 23:20 1,000 MG Acetaminophen (Ofirmev Iv) 100 ml @ 400 mls/hr Q8H PRN IV 02/27/16 13:15 03/28/16 13:14 Naloxone HCl (Narcan Inj) 0.1 mg Q5M PRN IV 02/27/16 13:15 03/28/16 13:14 Senna/Docusate Sodium (Senokot S Tab) 2 tab HS PO 02/27/16 21:00 03/28/16 20:59 02/28/16 21:15 2 TAB Sodium Biphosphate/ Sodium Phosphate (Fleet Enema) 132 ml ONE PRN ND 02/27/16 13:15 03/28/16 13:14 Hydroxyzine HCl (Vistaril Tab) 25 mg Q8H PRN PO 02/27/16 13:15 03/28/16 13:14 Al Hydroxide/Mg Hydroxide (Maalox Susp) 30 ml Q6H PRN PO 02/27/16 13:15 03/28/16 13:14 Famotidine (Pepcid Tab) 20 mg Q12 PRN PO 02/27/16 13:15 03/28/16 13:14 Diphenhydramine HCl (Benadryl Cap) 25 mg Q6H PRN PO 02/27/16 13:15 03/28/16 13:14 Cetirizine HCl (zyrTEC TAB) 10 mg QPM PO 02/27/16 21:00 03/28/16 20:59 02/28/16 21:15 10 MG Levothyroxine Sodium (Synthroid Tab) 150 mcg DAILYBB PO 02/28/16 06:00 03/29/16 05:59 02/29/16 05:31 150 MCG Morphine Sulfate (Oramorph Sr Tab) 30 mg Q12 PO 02/28/16 09:00 03/13/16 08:59 02/28/16 20:56 30 MG Ketorolac Tromethamine (Toradol Inj) 30 mg Q6H PRN IV 02/28/16 08:00 02/28/16 19:24 30 MG Hydromorphone HCl (Dilaudid Inj) 0.5 mg Q4 PRN IV 02/28/16 09:49 03/13/16 09:48 02/29/16 08:25 0.5 MG Baclofen (Lioresal Tab) 10 mg QIDM PO 02/28/16 12:30 03/29/16 12:29 02/28/16 19:26 10 MG Gabapentin (Neurontin Cap) 600 mg QID PO 02/28/16 13:00 03/29/16 12:59 02/28/16 20:56 600 MG Nicotine (Nicoderm Cq 14MG Patch) 1 patch QAM TD 02/28/16 10:30 03/29/16 10:29 02/29/16 09:20 1 PATCH Miscellaneous 1 ea 1 ea HS N/A 02/28/16 21:00 03/29/16 20:59 02/28/16 20:59 1 EA Sodium Chloride (Nss 1000ml) 1,000 ml @ 150 mls/hr Q6H40M IV 02/29/16 08:45 02/29/16 22:04 02/29/16 15:29 150 MLS/HR
[2016-02-29] MEDS: CETIRIZINE HCL 10 MG TAB PO SCH (21:30)
[2016-02-29] MEDS: DOCUSATE SODIUM/SENNA 50/8.6MG TAB PO SCH (21:30)
[2016-03-01 03:32] VITALS: BP 130/84; PULSE 116
[2016-03-01] MEDS: POLYETHYLENE (MIRALAX) 17 GM PACK PO SCH (05:51)
[2016-03-01] MEDS: LEVOTHYROXINE 150 MCG TAB PO SCH (05:52)
[2016-03-01] MEDS: METOCLOPRAMIDE HCL INJ 5 MG/ML 2 ML VIAL IV PRN (05:52)
[2016-03-01 06:19] LABS: HEMATOCRIT 30.3 % (37-47); MEAN CELL VOLUME 88.3 fL (80-100); MEAN CORPUSCULAR HEMOGLOBIN 28.9 pg (25-34); MEAN CORPUSCULAR HGB CONC 32.7 g/dl (32-36); MEAN PLATELET VOLUME 11.3 fL (7.4-10.4); PLATELET COUNT 302 K/uL (130-400); RED BLOOD COUNT 3.43 M/uL (4.2-5.4); WHITE BLOOD COUNT 12.84 K/uL (4.8-10.8)
[2016-03-01 06:48] LABS: BUN/CREATININE RATIO 14.2 (10-20); CALCIUM 8.6 mg/dl (8.5-10.1); CREATININE 0.41 mg/dl (0.60-1.20); MAGNESIUM 1.8 mg/dl (1.8-2.4); POTASSIUM 3.4 mmol/L (3.5-5.1)
--- NOTE | 2016-03-01 07:03 | PROGRESS NOTE ---
DATE: 02/28/2016 DATE: 02/28/2016. SUBJECTIVE: Ms. Montgomery is here postoperative day #1 status post removal of hardware L4-S1 with decompression L2-3 and continuation of fusion from L3-S1. She is having quite a bit in the way of left leg pain this morning. She is hyperesthetic along the anterior portion of the mathis in L4 distribution. She is also noted to be tachycardic and hypotensive. She has been getting her MS Contin every 12 hours 30 mg, as well as oxycodone for breakthrough. The patient is alert and oriented but in obvious distress. She has not had any other falls or injuries. OBJECTIVE: VITAL SIGNS: On exam last her vital signs last recorded were blood pressure 80/40 with a heart rate of 122, O2 sats are 94 on 3 liters nasal cannula. GENERAL: The patient is in obvious distress on exam. She is able to move her legs without difficulties, is hyperesthetic in the left anterior mathis. ALEXANDER drain is in place and last drainage recorded was 130. ABDOMEN: Soft, nontender. EXTREMITIES: Calves are soft and nontender. ASSESSMENT: The patient is having issues with pain control. PLAN: At this point, will add Toradol. Discussed with the pharmacist the fact that she had a reaction to aspirin, but has taken ibuprofen in the past without difficulties. Will add Toradol to her regimen at this point, continue oxycodone, her MS Contin and make sure she gets her Ativan as well. I placed a medical consult to help manage her blood pressure issues as well. We should be able to get her symptoms back under control with continued narcotic and anti-inflammatory use. We will continue to monitor.
[2016-03-01 07:06] VITALS: BP 139/80; PULSE 115; TEMP 37.1; O2SAT 93
[2016-03-01] MEDS ORDERED: NURSING VERBAL MED ORDER ONE (07:15)
--- NOTE | 2016-03-01 07:51 | Anesthesiology Progress Note ---
Anesthesia Post Op Note Date & Time Mar 01, 2016 at 07:50 Vital Signs Pain Intensity: 0.0 Vital Signs Past 12 Hours Date Time Temp Pulse Resp B/P Pulse Ox O2 Delivery O2 Flow Rate FiO2 03/01/16 07:15 Room Air 03/01/16 07:06 37.1 115 18 139/80 93 Room Air 03/01/16 03:32 116 130/84 02/29/16 23:30 Room Air 02/29/16 22:50 37.4 121 18 128/83 92 Room Air Notes Mental Status: alert / awake / arousable, participated in evaluation Pt Amnestic to Procedure: Yes Nausea / Vomiting: adequately controlled, improving with treatment Pain: adequately controlled Airway Patency, RR, SpO2: stable & adequate BP & HR: stable & adequate Hydration State: stable & adequate Anesthetic Complications: no major complications apparent post-op day 1 Nausea improved with treatment
[2016-03-01] MEDS: BACLOFEN 10 MG TAB PO SCH ×4 (08:03→20:05)
[2016-03-01] MEDS: ONDANSETRON INJ 2 MG/ML 2 ML VIAL IV SCH (08:03)
[2016-03-01] MEDS: MoRPHine SULFATE CR 15 MG TAB (MS CONTIN) PO SCH ×2 (08:38→21:52)
[2016-03-01] MEDS: GABAPENTIN 300 MG CAP PO SCH ×4 (08:38→21:50)
[2016-03-01] MEDS: NICOTINE 14 MG/24 HR TDSY TD SCH (08:39)
[2016-03-01] MEDS ORDERED: POTASSIUM CHLORIDE 20 MEQ TABCR PO STA (09:14)
[2016-03-01 09:28] VITALS: BP 110/65; PULSE 129; O2SAT 94
[2016-03-01] MEDS ORDERED: RXC5 PO (11:48)
--- NOTE | 2016-03-01 11:49 | Discharge Instructions ---
Discharge Instructions Admission Reason for Admission: Spinal Stenosis Discharge Discharge Diagnosis / Problem: stenosis Discharge Goals Goal(s): Improve function Activity Recommendations Activity Limitations: per Instructions/Follow-up section . Instructions / Follow-Up Instructions / Follow-Up ACTIVITY RECOMMENDATIONS: SELF CARE INSTRUCTIONS AFTER THORACIC/LUMBAR FUSIONS 1. You may walk to your tolerance. It is good exercise for your legs and back. Expect some back and intermittent leg aches and pains. 2. You may perform "counter-top" level activities (make a sandwich, johnathan with a project, etc.). 3. No bending or lifting of more than 10 pounds or back twisting of any nature (roll like a log when turning in bed). 4. You may ride in a car for 20-30 minutes at a time. No driving until after your first visit with your doctor. 5. Frequent changes of position and restricting sitting to 30 minutes at a time will help limit the amount of back spasms and stiffness you may experience. 6. You may discontinue the use of ambulatory aids (cane, crutches, etc.) once your strength and confidence allow. 7. You may standards analyst the shower and let water strike your incision when you arrive home at least once daily. Do not take a tub bath, sit in a hot tub or go into a swimming pool until after your first recheck in the office. SPECIAL CARE INSTRUCTIONS: VERY IMPORTANT TO READ AND REVIEW A. Your surgical incision has been closed with a cosmetic suture under the skin that will dissolve in about 6 weeks. In 14 days, you can use a pair of clean scissors and cut the suture that is left outside of the skin at the ends of your incision. 1. The small skin tapes can be removed 7 days after surgery if they have not fallen off by that point. 2. You may keep the wound open to air as much as possible to promote healing after post-op day number 5 unless told otherwise by your doctor. 3. If you think the wound looks like it is becoming infected (redness or worsening drainage) and/or you are experiencing fever, chill or worsening back pain and muscle spasms, contact the office so that we may evaluate you as soon as possible. B. Complications are uncommon, but please contact us if you have any signs or symptoms of: 1. wound infection (fever higher than 102.5 degrees F, redness, separation of wound, drainage, or increasing pain from the incision) 2. blood clots in legs (pain, swelling, redness and warmth in legs) 3. urinary tract infection (fever higher than 102.5 degrees F, burning upon urination or increased frequency of urination) 4. nerve problems (inability to walk on your toes or heels, numbness, loss of bowel or bladder control) 5. any other symptoms that concern you C. Please call the office at if you have any concerns or questions about your operation or recovery. D. No smoking! Smoking drastically decreases the chance of a solid fusion. E. Do not take any anti-inflammatory medications (Indocin, Advil, Motrin, Aspirin, Naprosyn, etc.) as these may inhibit the chance of a solid fusion. Tylenol is okay to take for pain. MANAGING PAIN AFTER SPINAL SURGERY 1. Narcotic medication is intended for short-term use and will be provided for surgical pain. Surgical pain usually lasts for a period of 4-6 weeks. Narcotic medication includes Percocet, Vicodin, Darvocet, Tylenol #3 or Lortab. 2. Longer-term pain is more appropriately treated with non-narcotic medication such as Tylenol ES. 3. Muscle spasm is not appropriately treated with narcotics. Muscle relaxers such as Soma, Flexeril or Skelaxin can be used along with Tylenol ES. 4. Remember that we all live with some "aches and pains". This is not unusual or uncommon after an injury or as we get older. a. Back pain is expected and may include muscle spasms for 4 to 6 weeks after surgery. The pain should gradually improve. If the pain worsens for no apparent reason, please contact the office. b. Intermittent leg pain may also be experienced and should not be concerned about unless it worsens for no apparent reason. If so, please contact the office. 5. We will provide appropriate medication within the normal guidelines of their prescribed use. We will also be very cautious and aware of potential abuse and extended duration of patients' medication needs. a. Pain medications are for your comfort and to assist with sleep and rest so that the tissue can heal. They are not provided in order to return to normal activity and should not be used through the day. To do so or worsening pain at night can result from ongoing tissue damage and development of tolerance to the prescribed medicine. 6. Please allow 2-3 days to process refills. Prescriptions will not be mailed but must be picked up at the office. FOLLOW UP VISIT: Keep your scheduled follow-up appointment. Any questions, please call the office at . Current Hospital Diet Patient's current hospital diet: Regular Diet Discharge Diet Recommended Diet: Regular Diet Procedures Procedures Performed: L3-L4 Lumbar Decompression; L4-S1 Hardware removal; L3-S1 Posterior reinstrumentation; L3-L4 and L4-L5 interbody fusion; use of Bone Morphogenetic Protein and Valerie allograft Pending Studies Studies pending at discharge: no Medical Emergencies . Who to Call and When: Medical Emergencies: If at any time you feel your situation is an emergency, please call 911 immediately. . Non-Emergent Contact Non-Emergency issues call your: Primary Care Provider . "Provider Documentation" section prepared by Flo Thompson. VTE Core Measure Inpt VTE Proph given/why not?: Jennifer Del Real, SCD's
--- NOTE | 2016-03-01 12:36 | PROGRESS NOTE ---
DATE: 03/01/2016 SUBJECTIVE: Postop day #3. Back pain controlled. Leg pain improved. Vital signs stable. T-max 37.0. ALEXANDER drained 30 mL. Bowel movement yesterday. PHYSICAL EXAMINATION: She has good strength to testing, appears much more comfortable. ASSESSMENT: Status post revision decompression and fusion. PLAN: At this time, we anticipate physical therapy today and discharge home tomorrow.
[2016-03-01 15:15] VITALS: BP 128/69; PULSE 122; TEMP 37.7; O2SAT 94
[2016-03-01] MEDS: OXYCODONE HCL IR 5 MG TAB (IMMEDIATE RELEASE) PO PRN ×2 (15:29→20:10)
[2016-03-01] MEDS ORDERED: ONDANSETRON INJ 2 MG/ML 2 ML VIAL IV PRN (15:39)
--- NOTE | 2016-03-01 17:48 | Progress Note ---
Medicine Progress Note Date & Time of Visit: Mar 01, 2016 at 14:14. Subjective denies nausea or vomiting today tolerating PO ambulated with PT still tachy no work of breathing or hypoxia afebrile and non-diaphoretic Objective Last 8 Hrs Date Time Temp Pulse Resp B/P Pulse Ox O2 Delivery O2 Flow Rate FiO2 03/01/16 09:28 129 94 03/01/16 07:15 Room Air 03/01/16 07:06 37.1 115 18 139/80 93 Room Air Physical Exam: GEN: WNWD, in no acute distress, alert and appropriate HEENT: NC/AT, normal sclerae CARDIO: tachy, S1/2 heard without m/g/r LUNGS: CTA bilaterally, no crackles, rales or wheezes, good diaphragmatic excursion ABD: soft, non-tender, non-distended, no rebound or guarding BACK: ALEXANDER drain in place and draining bloody fluid. Dressing in place over midback area and is c/d/i EXTREMITY: RP and DP palpable 2+ bilat, no LE swelling or edema, extremities are warm and well-perfused NEURO: extremities are NVI MUSC: good muscle tone, moves all extremities equally SKIN: warm and dry Laboratory Results: Last 24 Hours Test 03/01/16 05:20 White Blood Count 12.84 K/uL Red Blood Count 3.43 M/uL Hemoglobin 9.9 g/dL Hematocrit 30.3 % Mean Corpuscular Volume 88.3 fL Mean Corpuscular Hemoglobin 28.9 pg Mean Corpuscular Hemoglobin Concent 32.7 g/dl RDW Standard Deviation 44.9 fL RDW Coefficient of Variation 13.9 % Platelet Count 302 K/uL Mean Platelet Volume 11.3 fL Sodium Level 140 mmol/L Potassium Level 3.4 mmol/L Chloride Level 103 mmol/L Carbon Dioxide Level 25 mmol/L Anion Gap 12.0 mmol/L Blood Urea Nitrogen 6 mg/dl Creatinine 0.41 mg/dl Est Creatinine Clear Calc Drug Dose 151.8 ml/min Estimated GFR () 137.7 Estimated GFR (Non- 118.8 BUN/Creatinine Ratio 14.2 Random Glucose 113 mg/dl Calcium Level 8.6 mg/dl Phosphorus Level 3.0 mg/dl Magnesium Level 1.8 mg/dl Assessment & Plan Tachycardia: Likely due to combination of Pain/spasms, anxiety and deconditioning. Sever nausea has just recently improved this morning. -H/H is stable -pain control meds PRN--she is on her long acting morphine with breakthrough Lortab and feels pain is controlled at this time -Blood cultures -negative and she is not septic -Will monitor for any infectious source, however, with no lower back pain, this is less likely -also considered PE post-op, however, she is not working to breathe, denies any chest pain, and has no calf tenderness with many other reasons to have tachycardia at this time Nausea: scheduled Zofran to stay ahead of the nausea. Reglan PRN. -improved and reliably taking in PO, Zofran changed to PRN. Off IVF. S/P Lumbar Decompression Surgery: POD # 3. -Pain management under monitoring so it does not cause hypotension-continues on Gabapentin, Baclofen, Morphine and vicodin -PT/OT as per Surgical team -Monitor H/H Hypothyroidism: Continue Levothyroxine History GERD: Continue PPI. Code Status: FULL CODE DVT Prophylaxis: SCDs, however, would recommend chemoprophylaxis when surgery OK with this from a bleeding standpoint. Dispo-likely to home in am per Dr. Thompson. Thank you for this consultation. We will follow the patient with you during their hospital stay. You can reach a member of the [facility] Hospitalist Team 06/09 via pager @ . Current Inpatient Medications: Current Inpatient Medications Medications (Trade) Dose Ordered Sig/Autumn Route Start Time Stop Time Status Last Admin Dose Admin Metoclopramide HCl 10 mg 10 mg Q6H PRN IV 02/27/16 13:15 03/28/16 13:14 03/01/16 05:52 10 MG Lorazepam/Syringe (Ativan Inj/ Syringe) 1 ml @ 1 mls/min Q8H PRN IV 02/27/16 13:15 03/28/16 13:14 Pneumococcal Polysaccharide Vaccine 1 ea PRN PRN N/A 02/27/16 13:15 03/28/16 13:14 Influenza Virus Vacc Triv Types A&B 1 ea PRN PRN N/A 02/27/16 13:15 03/28/16 13:14 Bisacodyl (Dulcolax Supp) 10 mg DAILY PRN MA 02/27/16 13:15 03/28/16 13:14 Magnesium Hydroxide (Milk Of Magnesia Susp) 30 ml DAILY PRN PO 02/27/16 13:15 03/28/16 13:14 Oxycodone HCl (Roxicodone Immediate Rel Tab) 5-10mg prn moderate to sev... Q4H PRN PO 02/28/16 06:00 03/13/16 05:59 02/28/16 23:19 5 MG Acetaminophen 1000 mg 1,000 mg Q8H PRN PO 02/27/16 13:15 03/28/16 13:14 02/28/16 23:20 1,000 MG Acetaminophen (Ofirmev Iv) 100 ml @ 400 mls/hr Q8H PRN IV 02/27/16 13:15 03/28/16 13:14 Naloxone HCl (Narcan Inj) 0.1 mg Q5M PRN IV 02/27/16 13:15 03/28/16 13:14 Senna/Docusate Sodium (Senokot S Tab) 2 tab HS PO 02/27/16 21:00 03/28/16 20:59 02/29/16 21:30 2 TAB Sodium Biphosphate/ Sodium Phosphate (Fleet Enema) 132 ml ONE PRN MA 02/27/16 13:15 03/28/16 13:14 Hydroxyzine HCl (Vistaril Tab) 25 mg Q8H PRN PO 02/27/16 13:15 03/28/16 13:14 Al Hydroxide/Mg Hydroxide (Maalox Susp) 30 ml Q6H PRN PO 02/27/16 13:15 03/28/16 13:14 Famotidine (Pepcid Tab) 20 mg Q12 PRN PO 02/27/16 13:15 03/28/16 13:14 Diphenhydramine HCl (Benadryl Cap) 25 mg Q6H PRN PO 02/27/16 13:15 03/28/16 13:14 Cetirizine HCl (zyrTEC TAB) 10 mg QPM PO 02/27/16 21:00 03/28/16 20:59 02/29/16 21:30 10 MG Levothyroxine Sodium (Synthroid Tab) 150 mcg DAILYBB PO 02/28/16 06:00 03/29/16 05:59 03/01/16 05:52 150 MCG Morphine Sulfate (Oramorph Sr Tab) 30 mg Q12 PO 02/28/16 09:00 03/13/16 08:59 03/01/16 08:38 30 MG Ketorolac Tromethamine (Toradol Inj) 30 mg Q6H PRN IV 02/28/16 08:00 02/28/16 19:24 30 MG Hydromorphone HCl (Dilaudid Inj) 0.5 mg Q4 PRN IV 02/28/16 09:49 03/13/16 09:48 02/29/16 08:25 0.5 MG Baclofen (Lioresal Tab) 10 mg QIDM PO 02/28/16 12:30 03/29/16 12:29 03/01/16 12:08 10 MG Gabapentin (Neurontin Cap) 600 mg QID PO 02/28/16 13:00 03/29/16 12:59 03/01/16 12:30 600 MG Nicotine (Nicoderm Cq 14MG Patch) 1 patch QAM TD 02/28/16 10:30 03/29/16 10:29 02/29/16 09:20 1 PATCH Miscellaneous (Remove Nicoderm Patch) 1 ea HS N/A 02/28/16 21:00 03/29/16 20:59 02/29/16 21:26 1 EA Ondansetron HCl (Zofran Inj) 4 mg Q8H IV 02/29/16 16:00 03/02/16 15:59 03/01/16 08:03 4 MG
[2016-03-01] MEDS: CETIRIZINE HCL 10 MG TAB PO SCH (21:49)
[2016-03-01] MEDS: DOCUSATE SODIUM/SENNA 50/8.6MG TAB PO SCH (21:50)
[2016-03-01 23:25] VITALS: BP 121/72; PULSE 102; TEMP 37.7; O2SAT 93
[2016-03-01 23:28] VITALS: TEMP 37.1
[2016-03-02 01:58] VITALS: TEMP 37.3
[2016-03-02] MEDS: LEVOTHYROXINE 150 MCG TAB PO SCH (05:46)
[2016-03-02 06:36] VITALS: BP 115/71; PULSE 97; TEMP 37; O2SAT 94
[2016-03-02] MEDS: BACLOFEN 10 MG TAB PO SCH (07:45)
[2016-03-02] MEDS: NICOTINE 14 MG/24 HR TDSY TD SCH (07:45)
[2016-03-02] MEDS: GABAPENTIN 300 MG CAP PO SCH (07:45)
[2016-03-02] MEDS: MoRPHine SULFATE CR 15 MG TAB (MS CONTIN) PO SCH (07:48)
[2016-03-02 08:14] VITALS: BP 115/71; PULSE 97; TEMP 37; O2SAT 94
--- NOTE | 2016-03-02 08:41 | DISCHARGE SUMMARY ---
PRINCIPAL DIAGNOSIS: Spinal stenosis. HOSPITAL COURSE FOLLOWS: On 02/27/2016 the patient underwent multilevel lumbar decompression and fusion, tolerated this well and taken to the orthopedic floor postoperatively. Postop day #1 she was up and ambulatory, progressed to 2 and 3. ALEXANDER drain decreasing appropriately. Subsequently on postop day #4 she was discharged home. Discharge orders and instructions found on the chart for further review.
== END 2016-03-02 09:35 | disposition home or self-care (01) | DRG 460 ==
LOC: ENRESERVDT → ENRESERVTM → C.ACU 07:07 → C.MSW 09:30
PROVIDERS: ADMIT Orthopaedic Surgery Orthopaedic Surgery of the Spine; ATTEND Orthopaedic Surgery Orthopaedic Surgery of the Spine
PROC: 3E0U0GB Introduction of Recombinant Bone Morphogenetic Protein into Joints, Open Approach (ICD-10-PCS; principal; 2016-02-27 09:30)
PROC: 0SG10AJ Fusion of 2 or more Lumbar Vertebral Joints with Interbody Fusion Device, Posterior Approach, Anterior Column, Open Approach (ICD-10-PCS; principal; 2016-02-27 09:30)
PROC: 0SP304Z Removal of Internal Fixation Device from Lumbosacral Joint, Open Approach (ICD-10-PCS; principal; 2016-02-27 09:30)
PROC: 0SG1071 Fusion of 2 or more Lumbar Vertebral Joints with Autologous Tissue Substitute, Posterior Approach, Posterior Column, Open Approach (ICD-10-PCS; principal; 2016-02-27 09:30)
PROC: 0SG3071 Fusion of Lumbosacral Joint with Autologous Tissue Substitute, Posterior Approach, Posterior Column, Open Approach (ICD-10-PCS; principal; 2016-02-27 09:30)
PROC: 0ST20ZZ Resection of Lumbar Vertebral Disc, Open Approach (ICD-10-PCS; principal; 2016-02-27 09:30)
DX: M48.00 Spinal stenosis, site unspecified (principal); F11.20 Opioid dependence, uncomplicated; M96.0 Pseudarthrosis after fusion or arthrodesis; M54.5 Low back pain; E03.9 Hypothyroidism, unspecified; F17.210 Nicotine dependence, cigarettes, uncomplicated; K21.9 Gastro-esophageal reflux disease without esophagitis; I95.9 Hypotension, unspecified; R00.0 Tachycardia, unspecified; R50.9 Fever, unspecified; F41.9 Anxiety disorder, unspecified; K44.9 Diaphragmatic hernia without obstruction or gangrene; M19.90 Unspecified osteoarthritis, unspecified site; R11.0 Nausea; D64.9 Anemia, unspecified; R01.1 Cardiac murmur, unspecified; K76.0 Fatty (change of) liver, not elsewhere classified; R53.81 Other malaise; M10.9 Gout, unspecified; M54.10 Radiculopathy, site unspecified; R20.0 Anesthesia of skin; Z98.1 Arthrodesis status; G89.18 Other acute postprocedural pain; M79.605 Pain in left leg; Y83.4 Other reconstructive surgery as the cause of abnormal reaction of the patient, or of later complication, without mention of misadventure at the time of the procedure

== ENCOUNTER → 2017-04-25 | Outpatient (CLI) | payer OTHER ==
[~2017-04-25] MED LIST changes: -CLINDAMYCIN 600 MG/54 ML D5W 54 ML IV SCH; -IBUP-1050 PO; +IBUPROFEN PO; -LACTATED RINGER'S 1000ML IV SCH; +LEVO112T2 PO; -MELO7.5T5 PO; +MORP60TA69 PO; +RXC5 PO; -SCOPOLAMINE 1.5 MG TDSY TD SCH
[2017-04-25 16:55] LABS: ALBUMIN 3.7 gm/dl (3.4-5.0); ALT/SGPT 20 U/L (12-78); BLOOD UREA NITROGEN 8 mg/dl (7-18); CALCIUM 9.4 mg/dl (8.5-10.1); CARBON DIOXIDE 32 mmol/L (21-32); CREATININE 0.58 mg/dl (0.60-1.20); GLUCOSE 89 mg/dl (70-99); POTASSIUM 4.2 mmol/L (3.5-5.1); SODIUM 135 mmol/L (136-145)
[2017-04-25 17:06] LABS: ALKALINE PHOSPHATASE 119 U/L (45-117); AST/SGOT 12 U/L (15-37); TOTAL PROTEIN 7.5 gm/dl (6.4-8.2)
== END | disposition home or self-care (01) ==
LOC: C.LAB 15:59
PROVIDERS: ATTEND Internal Medicine
DX: E03.9 Hypothyroidism, unspecified (principal)

== ENCOUNTER 2017-05-20 07:29 | Inpatient (IN) | payer OTHER ==
[2017-04-25 15:33] VITALS: Ht 162.6 cm; Wt 73.1 kg
--- NOTE | 2017-04-25 16:13 | PAT Medication Instructions ---
Service Date Apr 25, 2017. Current Home Medication List Baclofen (Lioresal), 20 MG PO TID Docusate Sodium (Stool Softener), 100 MG PO QAM Gabapentin (Neurontin), 900 MG PO TID Levothyroxine Sodium (Synthroid), 112 MCG PO QAM Morphine Sulfate (Ms Contin), 60 MG PO Q12 [Ibuprofen ], 1,200 MG PO UD PRN for PRN [Vicodin], 1 TAB PO Q6H PRN for Pain Medication Instructions For Your Scheduled Surgery -Contact your surgeon for instructions for: [Ibuprofen ], 1,200 MG PO UD PRN for PRN - Hold the following medications the morning of surgery: Baclofen (Lioresal), 20 MG PO TID Docusate Sodium (Stool Softener), 100 MG PO QAM - Take the following medications the morning of surgery with a sip of water: Gabapentin (Neurontin), 900 MG PO TID Levothyroxine Sodium (Synthroid), 112 MCG PO QAM Morphine Sulfate (Ms Contin), 60 MG PO Q12 (if needed, can be taken up to four hours before surgery) [Vicodin], 1 TAB PO Q6H PRN for Pain (if needed, can be taken up to four hours before surgery) - Take the following medications as scheduled the night before surgery: Baclofen (Lioresal), 20 MG PO TID Gabapentin (Neurontin), 900 MG PO TID Morphine Sulfate (Ms Contin), 60 MG PO Q12 (if needed) [Vicodin], 1 TAB PO Q6H PRN for Pain (if needed) If you have any questions please call us at [phone] or [phone] or [phone]
[2017-04-25 16:47] LABS: BASO % 0.4 %; BASO ABS # 0.03 K/uL (0-0.2); EOS % 1.9 %; EOS ABS # 0.15 K/uL (0-0.5); HEMATOCRIT 43.8 % (37-47); HEMOGLOBIN 14.8 g/dL (12.0-16.0); IG# 0.01 K/uL (0.00-0.02); LYMPH % 17.5 %; MEAN CORPUSCULAR HEMOGLOBIN 31.1 pg (25-34); MEAN CORPUSCULAR HGB CONC 33.8 g/dl (32-36); MEAN PLATELET VOLUME 10.3 fL (7.4-10.4); MONO % 7.5 %; NEUT % 72.6 %; NEUT ABS # 5.79 K/uL (1.4-6.5); PLATELET COUNT 285 K/uL (130-400); RED CELL DISTRIBUTION WIDTH CV 14.7 % (11.5-14.5); RED CELL DISTRIBUTION WIDTH SD 49.9 fL (36.4-46.3); WHITE BLOOD COUNT 7.98 K/uL (4.8-10.8)
--- NOTE | 2017-04-25 16:57 | DIAGNOSTIC IMAGING REPORT ---
CHEST 2 VIEWS ROUTINE HISTORY: 52 years-old Female PAT preoperative exam. No acute chest complaints COMPARISON: Chest radiograph 02/28/2016 TECHNIQUE: PA and lateral views of the chest FINDINGS: Cardiomediastinal and hilar silhouettes are within normal limits. There is no pneumothorax, pleural effusion, focal airspace consolidation or overt pulmonary edema. Linear subsegmental right mid lung and right perihilar with lateral left midlung and left basilar opacities suggesting atelectasis/scarring. Fusion hardware of the lumbar spine is noted with superior pedicle screws extending into the adjacent disc space. There is 1.2 cm retrolisthesis of the superior vertebra in relation to the fused vertebra below. IMPRESSION: 1. No acute process of the chest. 2. Fusion hardware of the lumbar spine with associated listhesis as above. These findings could be correlated with dedicated imaging of the spine as clinically indicated. The above report was generated using voice recognition software. It may contain grammatical, syntax or spelling errors. Electronically signed by: Jeb Grimm M.D. 04/25/2017 4:56 PM Dictated Date/Time: 04/25/2017 4:53 PM
[~2017-05-20] VITALS: Ht 162.6 cm; Wt 73.1 kg
[2017-05-20] VITALS (8 sets, daily range): BP systolic 104–121; BP diastolic 51–74; PULSE 63–96; TEMP 36.3–37; O2SAT 96–100
[~2017-05-20 07:29] MED LIST changes: +CEFAZOLIN 1000MG IV PUSH 7.5 ML IV SCH; -CETI10TA84 PO; -CHOL1000 PO; +LACTATED RINGER'S 1000ML 1,000 ML IV SCH; -LEVO150T PO; -MORP30TA23 PO; -RXC5 PO
[2017-05-20] MEDS ORDERED: FENTANYL CITRATE INJ 50 MCG/1 ML 2 ML VIAL IV PRN (09:15)
[2017-05-20] MEDS ORDERED: EpHEDrine SULFATE INJ 50 MG/ML AMP IV PRN (09:15)
[2017-05-20] MEDS ORDERED: ONDANSETRON INJ 2 MG/ML 2 ML VIAL IV PRN (09:15)
[2017-05-20] MEDS ORDERED: ATROPINE SULFATE 0.1 MG/ML 5ML SYR IV PRN (09:15)
[2017-05-20] MEDS ORDERED: HYDROmorphone INJ 0.5 MG/0.5 ML SYR IV PRN (09:15)
[2017-05-20] MEDS ORDERED: SCOPOLAMINE 1.5 MG TDSY TD ONE (09:28)
[2017-05-20] MEDS ORDERED: SCOPOLAMINE 1.5 MG TDSY TD SCH (09:30)
[2017-05-20] MEDS ORDERED: FENTANYL CITRATE INJ 50 MCG/1 ML 2 ML VIAL ONE ×6 (09:47→12:58)
[2017-05-20] MEDS ORDERED: MIDAZOLAM HCL 1 MG/ML 2ML VIAL ONE (09:47)
--- NOTE | 2017-05-20 09:48 | History and Physical ---
History & Physical Date May 20, 2017. Chief Complaint Back and leg pain History of Present Illness The patient is a 52 year old female with complaints of back and leg pain Back Past Medical/Surgical History Medical Problems: (1) Lumbar stenosis with neurogenic claudication Additional History Hepatic Disease: No Endocrine Disorder: No Kidney Disease: No Hypertension: No Heart Disease: No Bleeding Tendencies: No Infectious Diseases: No Allergies Coded Allergies: Iodinated Diagnostic Agents (Verified Allergy, Severe, SEE NOTES, 05/20/17) PT REPORTS ALLERGY IS TO "RADIOACTIVE IODINE" - HAD SEVERE ITCHINESS AND HIVES Aspirin (Verified Allergy, Unknown, THROAT SWELLING, HIVES, ITCHING, ) BEE STING (Verified Allergy, Unknown, ANAPHYLAXIS, 05/20/17) Cyclobenzaprine (Verified Allergy, Unknown, MUSCLE SPASMS, 05/20/17) Diazepam (Verified Allergy, Unknown, GETS VIOLENT, 05/20/17) Latex1 -Allergic Contact Dermititis (Verified Allergy, Unknown, CONTACT - REDNESS RASH, 05/20/17) Penicillins (Verified Allergy, Unknown, ITCHING HIVES THROAT SWELLING, 05/20) Prednisone (Verified Allergy, Unknown, FELT NUTS, 05/20/17) Shellfish (Verified Allergy, Unknown, SWELLING ITCHING THROAT HIVES, ) Sulfa Antibiotics (Verified Allergy, Unknown, HIVES SWELLING THROAT ITCHING, 05/20/17) Sulfites (Verified Allergy, Unknown, "JUST LIKE THE PENICILLIN REACTION" - SEE NOTES, 05/20/17) "PT REPORTS ONLY ANTIBIOTICS SHE CAN TAKE ZITHROMAX AND THE OTHER ONE STARTS WITH A C" Chlorpheniramine (Verified Adverse Reaction, Unknown, HYPERACTIVITY, ) Phenylephrine (Verified Adverse Reaction, Unknown, HYPERACTIVITY, 05/20/17) Phenylpropanolamine (Verified Adverse Reaction, Unknown, HYPERACTIVITY, 05/20/17) Phenyltoloxamine (Verified Adverse Reaction, Unknown, HYPERACTIVITY, ) Home Medications Scheduled Baclofen (Lioresal), 20 MG PO TID Docusate Sodium (Stool Softener), 100 MG PO QAM Gabapentin (Neurontin), 900 MG PO TID Levothyroxine Sodium (Synthroid), 112 MCG PO QAM Morphine Sulfate (Ms Contin), 60 MG PO Q12 Scheduled PRN [Ibuprofen ], 1,200 MG PO UD PRN for PRN [Vicodin], 1 TAB PO Q6H PRN for Pain Physical Examination Skin: warm/dry, no rash Eyes: normal inspection, EOMI, sclerae normal ENT: normal ENT inspection, pharynx normal Head: normocephalic, atraumatic Neck: supple, no adenopathy, trachea midline Respiratory/Chest: lungs clear, normal breath sounds, no respiratory distress Cardiovascular: regular rate, rhythm, no edema, no murmur Abdomen / GI: normal bowel sounds, non tender Back: normal inspection Extremities: normal inspection, normal range of motion Neurologic/Psych: no motor/sensory deficits, alert, normal reflexes, oriented x 3 Diagnosis Lumbar spinal stenosis Plan of Treatment Removal of hardware L3-S1, L2-L3 decompression, T12 to the sacrum fusion
[2017-05-20] MEDS ORDERED: BACITRACIN 50000 UNIT VIAL ONE (10:13)
[2017-05-20] MEDS ORDERED: BUPIVACAINE/EPINEPHRINE 0.5% MPF 1:200,000 30 ML VIAL ONE (10:13)
[2017-05-20] MEDS ORDERED: CLINDAMYCIN 600 MG/54 ML D5W IV ONE (10:22)
[2017-05-20] MEDS ORDERED: HYDROmorphone INJ 2 MG/ML SYR/VIAL ONE ×3 (10:48→12:58)
[2017-05-20] MEDS ORDERED: LIDOCAINE HCL 2% 2 ML VIAL (20MG/ML) ONE (12:29)
[2017-05-20] MEDS ORDERED: RANITIDINE HCL 25 MG/ML INJ ONE (12:29)
[2017-05-20] MEDS ORDERED: FLOSEAL HEMOSTATIC MATRIX 10ML TOP ONE (12:29)
[2017-05-20] MEDS ORDERED: ONDANSETRON INJ 2 MG/ML 2 ML VIAL ONE ×2 (12:29→13:03)
[2017-05-20] MEDS ORDERED: DEXAMETHASONE SOD INJ 4 MG/ML VIAL ONE (12:29)
[2017-05-20] MEDS ORDERED: PROPOFOL IV EMULSION 10 MG/ML 20 ML VIAL IV ONE (12:29)
[2017-05-20] MEDS ORDERED: METOCLOPRAMIDE HCL INJ 5 MG/ML 2 ML VIAL ONE (12:29)
[2017-05-20] MEDS: SODIUM CHLORIDE 0.9% 1000ML 1,000 ML IV SCH ×2 (12:42→23:45)
--- NOTE | 2017-05-20 12:42 | [facility] Operative Report ---
Operative Report Operative Date May 20, 2017. Pre-Operative Diagnosis Lumbar spinal stenosis Post-Operative Diagnosis same as preop Procedure(s) Performed 1. Removal of posterior segmental instrumentation L3-S1. #2 exploration of fusion L3-S1. #3 lumbar decompression medial facetectomies foraminotomies L1-L2 3. #4 posterior spinal fusion T12-L1 L1-L2 3. #5 placement of segmental instrumentation T12-S1. #6 placement of locally harvested morselized autograft in the posterior lateral gutters. #7 placement of infuse collagen sponge combined with mesh graft in the posterior lateral gutters. Surgeon Dr. Thompson Director Of Testing Surgeon(s) Telly Wolf PA-C Estimated Blood Loss 400 Findings Severe spinal stenosis Specimens A: Removed hardware L3-S1 Description of Procedure Patient was met with preoperatively case discussed all questions addressed. After informed consent obtained patient was taken to the operative suite underwent intubation and placed in a prone position on the Nito table on top of the Kushal frame. All bony prominences were well-padded eyes inspected to ensure no external pressure placed upon them. This point the thoracolumbar spine was prepped and draped in normal sterile fashion. Sharp dissection with the assistance of Bovie cautery was performed down to and exposing the lamina and transverse processes of T12 L1-L2 and instrumentation at L3-4-5 and S1 levels. Then proceeded to remove the hardware bilaterally explain the fusion mass noting to be intact. Then performed a complete laminectomy of L2 partial laminectomy of L1 addressing severe central lateral recess foraminal stenosis. Pedicle screws were then placed in T12 L1-L2-L3 L5 and S1 bilaterally the process naina contoured and locked in position. Cross-link was locked into position. The transverse processes of T12 L1-L2 and L3 burred to subcortical bleeding bone. Infuse collagen sponge mass graft and locally harvested morselized autograft was placed in the posterior lateral gutters. 15 round ALEXANDER drain inserted. Incision was closed with 1 Vicryl fascia 2-0 Vicryl subcutaneous and 4-0 Monocryl for fast closure Steri-Strips sterile dressings placed. Patient will continue to PACU stable condition. Please note Tarik Wolf was present throughout the entire procedure involved in patient positioning complex portions of the surgery and final skin closure. I attest to the content of the Intraoperative Record and any orders documented therein. Any exceptions are noted below.
[2017-05-20] MEDS ORDERED: ALUMINUM/MAGNESIUM SUSP 30 ML UDC PO PRN (12:45)
[2017-05-20] MEDS ORDERED: ACETAMINOPHEN IV 100 ML IV PRN (12:45)
[2017-05-20] MEDS ORDERED: MAGNESIUM HYDROXIDE SUSP 30 ML UDC PO PRN ×2 (12:45)
[2017-05-20] MEDS ORDERED: FAMOTIDINE 20 MG TAB PO PRN (12:45)
[2017-05-20] MEDS ORDERED: BISACODYL 10 MG SUPP PR PRN ×2 (12:45)
[2017-05-20] MEDS ORDERED: DO NOT ADMINISTER PNEUMOCOCCAL VACCINE PRN (12:45)
[2017-05-20] MEDS ORDERED: PROMETHAZINE HCL INJ 12.5 MG in SODIUM CHLORIDE 0.9% 50ML 50 ML IV PRN (12:45)
[2017-05-20] MEDS ORDERED: DO NOT ADMINISTER FLU VACCINE PRN (12:45)
[2017-05-20] MEDS ORDERED: LORAZEPAM 0.5 MG TAB PO PRN (12:45)
[2017-05-20] MEDS ORDERED: LORAZEPAM INJ 0.5 MG in SYRINGE 0.75 ML IV PRN (12:45)
[2017-05-20] MEDS ORDERED: SOD PHOSPHATE/SOD BIPHOSPHATE ENEMA 132 ML BTL PR PRN ×2 (12:45)
[2017-05-20] MEDS ORDERED: hydrOXYzine HCL 25 MG TAB PO PRN (12:45)
[2017-05-20] MEDS ORDERED: NALOXONE HCL 0.4 MG/1 ML VIAL/CARP IV PRN ×2 (12:45)
[2017-05-20] MEDS ORDERED: KETOROLAC TROMETHAMINE 30 MG/ML VIAL ONE (13:03)
[2017-05-20] MEDS ORDERED: PHENYLEPHRINE 100MCG/ML 5ML SYR ONE (13:03)
[2017-05-20] MEDS ORDERED: NEOSTIGMINE METHYLSULFATE 1 MG/ML 10ML VIAL ONE (13:03)
[2017-05-20] MEDS ORDERED: GLYCOPYRROLATE INJ 0.2 MG/ML VIAL ONE (13:03)
--- NOTE | 2017-05-20 13:14 | DIAGNOSTIC IMAGING REPORT ---
LUMBAR SPINE, INTRAOPERATIVE FLUOROSCOPY HISTORY: T12 S1 fusion. FLUOROSCOPY TIME: 33 seconds. FINDINGS: Intraoperative fluoroscopy was provided for the lumbar spine. 4 fluoroscopic spot images were obtained. Posterior decompression fusion from T12 through S1 with pedicle screws and rods. The hardware appears intact. IMPRESSION: Fluoroscopy provided for a T12-S1 posterior decompression and fusion. Electronically signed by: Ranjith Gustafson M.D. 05/20/2017 1:12 PM Dictated Date/Time: 05/20/2017 1:11 PM
[2017-05-20] MEDS: HYDROmorphone HCL 0.5MG/ML 50 ML CASSETTE IV PRN ×3 (13:28→23:02)
[2017-05-20] MEDS: CHECK SCOPOLAMINE PATCH PLACEMENT SCH ×2 (15:54→23:39)
[2017-05-20] MEDS: GABAPENTIN 300 MG CAP PO SCH ×2 (15:55→21:15)
[2017-05-20] MEDS: BACLOFEN TAB 20 MG TAB PO SCH ×2 (15:56→21:15)
[2017-05-20] MEDS: CLINDAMYCIN 600 MG/54 ML D5W 54 ML IV SCH (19:22)
[2017-05-20] MEDS ORDERED: MoRPHine SULFATE CR 60 MG TAB (MS CONTIN) PO SCH (21:00)
[2017-05-20] MEDS ORDERED: DOCUSATE SODIUM/SENNA 50/8.6MG TAB PO SCH (21:00)
[2017-05-20] MEDS: DOCUSATE SODIUM/SENNA 50/8.6MG TAB PO SCH (21:15)
[2017-05-21] MEDS: CLINDAMYCIN 600 MG/54 ML D5W 54 ML IV SCH (02:46)
[2017-05-21 03:16] VITALS: BP 103/61; PULSE 82; TEMP 36.9; O2SAT 95
[2017-05-21] MEDS: LEVOTHYROXINE 112 MCG TAB PO SCH (05:54)
[2017-05-21] MEDS ORDERED: NALOXONE HCL 0.4 MG/1 ML VIAL/CARP IV PRN (06:00)
[2017-05-21] MEDS ORDERED: HYDROmorphone INJ 0.5 MG/0.5 ML SYR IV PRN (06:00)
[2017-05-21] MEDS ORDERED: DC PCA SCH (06:00)
[2017-05-21 06:56] LABS: BASO % 0.1 %; BASO ABS # 0.01 K/uL (0-0.2); HEMATOCRIT 37.3 % (37-47); HEMOGLOBIN 12.6 g/dL (12.0-16.0); IG# 0.04 K/uL (0.00-0.02); LYMPH % 10.4 %; LYMPH ABS # 1.31 K/uL (1.2-3.4); MEAN CELL VOLUME 91.9 fL (80-100); MEAN CORPUSCULAR HGB CONC 33.8 g/dl (32-36); MEAN PLATELET VOLUME 11.3 fL (7.4-10.4); MONO % 9.6 %; MONO ABS # 1.22 K/uL (0.11-0.59); NEUT % 79.6 %; NEUT ABS # 10.07 K/uL (1.4-6.5); PLATELET COUNT 277 K/uL (130-400); RED CELL DISTRIBUTION WIDTH CV 14.9 % (11.5-14.5); RED CELL DISTRIBUTION WIDTH SD 50.8 fL (36.4-46.3); WHITE BLOOD COUNT 12.65 K/uL (4.8-10.8)
[2017-05-21 07:29] LABS: CALCIUM 8.7 mg/dl (8.5-10.1); CREATININE 0.75 mg/dl (0.60-1.20); POTASSIUM 4.2 mmol/L (3.5-5.1)
[2017-05-21] MEDS: CHECK SCOPOLAMINE PATCH PLACEMENT SCH ×2 (08:13→14:52)
[2017-05-21 08:19] VITALS: BP 134/81; PULSE 98; TEMP 37.1; O2SAT 97
[2017-05-21] MEDS: GABAPENTIN 300 MG CAP PO SCH ×3 (09:07→20:49)
[2017-05-21] MEDS: BACLOFEN TAB 20 MG TAB PO SCH ×3 (09:07→20:49)
[2017-05-21] MEDS: MoRPHine SULFATE CR 15 MG TAB (MS CONTIN) PO SCH ×2 (09:14→20:50)
[2017-05-21] MEDS ORDERED: RXC5 PO (09:58)
--- NOTE | 2017-05-21 09:58 | Discharge Instructions ---
Discharge Instructions Date of Service May 21, 2017. Admission Reason for Admission: Lumbar Spinal Stenosis Discharge Discharge Diagnosis / Problem: lumbar stenosis Discharge Goals Goal(s): Improve function Activity Recommendations Activity Limitations: per Instructions/Follow-up section . Instructions / Follow-Up Instructions / Follow-Up ACTIVITY RECOMMENDATIONS: SELF CARE INSTRUCTIONS AFTER THORACIC/LUMBAR FUSIONS 1. You may walk to your tolerance. It is good exercise for your legs and back. Expect some back and intermittent leg aches and pains. 2. You may perform "counter-top" level activities (make a sandwich, johnathan with a project, etc.). 3. No bending or lifting of more than 10 pounds or back twisting of any nature (roll like a log when turning in bed). 4. You may ride in a car for 20-30 minutes at a time. No driving until after your first visit with your doctor. 5. Frequent changes of position and restricting sitting to 30 minutes at a time will help limit the amount of back spasms and stiffness you may experience. 6. You may discontinue the use of ambulatory aids (cane, crutches, etc.) once your strength and confidence allow. 7. You may head animal trainer the shower and let water strike your incision when you arrive home at least once daily. Do not take a tub bath, sit in a hot tub or go into a swimming pool until after your first recheck in the office. SPECIAL CARE INSTRUCTIONS: VERY IMPORTANT TO READ AND REVIEW A. Your surgical incision has been closed with a cosmetic suture under the skin that will dissolve in about 6 weeks. In 14 days, you can use a pair of clean scissors and cut the suture that is left outside of the skin at the ends of your incision. 1. The small skin tapes can be removed 7 days after surgery if they have not fallen off by that point. 2. You may keep the wound open to air as much as possible to promote healing after post-op day number 5 unless told otherwise by your doctor. 3. If you think the wound looks like it is becoming infected (redness or worsening drainage) and/or you are experiencing fever, chill or worsening back pain and muscle spasms, contact the office so that we may evaluate you as soon as possible. B. Complications are uncommon, but please contact us if you have any signs or symptoms of: 1. wound infection (fever higher than 102.5 degrees F, redness, separation of wound, drainage, or increasing pain from the incision) 2. blood clots in legs (pain, swelling, redness and warmth in legs) 3. urinary tract infection (fever higher than 102.5 degrees F, burning upon urination or increased frequency of urination) 4. nerve problems (inability to walk on your toes or heels, numbness, loss of bowel or bladder control) 5. any other symptoms that concern you C. Please call the office at if you have any concerns or questions about your operation or recovery. D. No smoking! Smoking drastically decreases the chance of a solid fusion. E. Do not take any anti-inflammatory medications (Indocin, Advil, Motrin, Aspirin, Naprosyn, etc.) as these may inhibit the chance of a solid fusion. Tylenol is okay to take for pain. MANAGING PAIN AFTER SPINAL SURGERY 1. Narcotic medication is intended for short-term use and will be provided for surgical pain. Surgical pain usually lasts for a period of 4-6 weeks. Narcotic medication includes Percocet, Vicodin, Darvocet, Tylenol #3 or Lortab. 2. Longer-term pain is more appropriately treated with non-narcotic medication such as Tylenol ES. 3. Muscle spasm is not appropriately treated with narcotics. Muscle relaxers such as Soma, Flexeril or Skelaxin can be used along with Tylenol ES. 4. Remember that we all live with some "aches and pains". This is not unusual or uncommon after an injury or as we get older. a. Back pain is expected and may include muscle spasms for 4 to 6 weeks after surgery. The pain should gradually improve. If the pain worsens for no apparent reason, please contact the office. b. Intermittent leg pain may also be experienced and should not be concerned about unless it worsens for no apparent reason. If so, please contact the office. 5. We will provide appropriate medication within the normal guidelines of their prescribed use. We will also be very cautious and aware of potential abuse and extended duration of patients' medication needs. a. Pain medications are for your comfort and to assist with sleep and rest so that the tissue can heal. They are not provided in order to return to normal activity and should not be used through the day. To do so or worsening pain at night can result from ongoing tissue damage and development of tolerance to the prescribed medicine. 6. Please allow 2-3 days to process refills. Prescriptions will not be mailed but must be picked up at the office. FOLLOW UP VISIT: Keep your scheduled follow-up appointment. Any questions, please call the office at . Current Hospital Diet Patient's current hospital diet: Regular Diet Discharge Diet Recommended Diet: Regular Diet Procedures Procedures Performed: 1. Removal of posterior segmental instrumentation L3-S1. #2 exploration of fusion L3-S1. #3 lumbar decompression medial facetectomies foraminotomies L1-L2 3. #4 posterior spinal fusion T12-L1 L1-L2 3. #5 placement of segmental instrumentation T12-S1. #6 placement of locally harvested morselized autograft in the posterior lateral gutters. #7 placement of infuse collagen sponge combined with mesh graft in the posterior lateral gutters. Pending Studies Studies pending at discharge: no Medical Emergencies . Who to Call and When: Medical Emergencies: If at any time you feel your situation is an emergency, please call 911 immediately. . Non-Emergent Contact Non-Emergency issues call your: Primary Care Provider . "Provider Documentation" section prepared by Flo Thompson. .
[2017-05-21] MEDS ORDERED: KETOROLAC TROMETHAMINE 30 MG/ML VIAL IV PRN (10:00)
[2017-05-21] MEDS: ONDANSETRON INJ 2 MG/ML 2 ML VIAL IV PRN ×2 (10:13→20:04)
--- NOTE | 2017-05-21 10:26 | Progress Note ---
Progress Note Date of Service May 21, 2017. Progress Note Patient's back pain is controlled. Leg symptoms are markedly improved. She was ambulating last evening. On exam she is good strength testing appears comfortable. Assessment status post lumbar decompression fusion per plan at this time will continue physical therapy throughout the weekend advance her bowel regimen anticipate discharge home Tuesday.
[2017-05-21] MEDS: OXYCODONE HCL IR 5 MG TAB (IMMEDIATE RELEASE) PO PRN (13:39)
[2017-05-21] MEDS: ACETAMINOPHEN 500 MG TAB PO PRN (13:40)
[2017-05-21 15:35] VITALS: BP 99/59; PULSE 100; TEMP 37.1; O2SAT 92
[2017-05-21] MEDS: DOCUSATE SODIUM/SENNA 50/8.6MG TAB PO SCH (20:49)
[2017-05-21 23:02] VITALS: BP 111/71; PULSE 103; TEMP 37.8; O2SAT 92
[2017-05-21 23:40] VITALS: BP 126/82; PULSE 150; O2SAT 96
[2017-05-22] VITALS (14 sets, daily range): BP systolic 95–109; BP diastolic 61–75; PULSE 100–166; TEMP 36.9–38.2; O2SAT 83–97
[2017-05-22] MEDS: CHECK SCOPOLAMINE PATCH PLACEMENT SCH ×2 (00:15→08:00)
--- NOTE | 2017-05-22 03:16 | CONSULTATION REPORT ---
DATE OF CONSULTATION: 05/22/2017 PRIMARY CARE PHYSICIAN: Dr. Gregg. CONSULT REQUESTED BY: Dr. Thompson, for ongoing tachycardia following surgery. HISTORY OF PRESENT COMPLAINT: She is a 52-year-old female with significant past medical history of hypothyroidism, chronic degenerative joint disease, chronic anemia and GERD, underwent L2-L3 lumbar decompression and T12 sacral fusion on Tuesday last. For the last day, she has been noted to have tachycardia. She denies any chest pain, palpitation, shortness of breath, but she does have abdominal pain, mostly in the left lower quadrant. She does not have any problem with urine and/or bowel habit. She denies any fever, chills or rigors. She has been in tachycardia, around 130 per minute, and also occasionally her saturation is going down. She is requiring 2 liters of oxygen to maintain saturation. Otherwise, her blood pressure is maintaining and an apparent EKG did show sinus tachycardia of 130 and her white count was slightly elevated at 12. DICTATION ENDS HERE: Disconnected Please ignore this document. DR Luis VICTORIA
--- NOTE | 2017-05-22 03:31 | CONSULTATION REPORT ---
DATE OF CONSULTATION: 05/22/2017 PRIMARY CARE PHYSICIAN: Dr. Gregg. CONSULT REQUESTED BY: Dr. Thompson, for persistent tachycardia following surgery. HISTORY OF PRESENT COMPLAINT: She is a 52-year-old female with significant past medical history including hypothyroidism, chronic degenerative disc disease, chronic anemia and GERD, apparently underwent L2-L3 decompression and T12 sacral fusion on Tuesday. She has had prior evaluation including blood test and EKG and echocardiogram and chest x-ray which were unremarkable. Following surgery, she was doing good. She was noted to have tachycardia that has been going on since morning and also noted to have desaturation that required 2 liters oxygen continuously. On asking questions, she complains to have some left lower quadrant pain but denies any problem with dysuria or frequency and did not have any bowel problem. Her EKG did show sinus tachycardia of 130 and her white count was 12,000. PAST MEDICAL HISTORY: As mentioned earlier, hypothyroidism, chronic DJD, anemia and GERD. PAST SURGICAL HISTORY: Lumbar disc surgery before. FAMILY HISTORY: Nothing contributory. SOCIAL HISTORY: She still smokes, does not use any alcohol. She is and she lives with her family. ALLERGIES: SHE IS ALLERGIC TO IODINATED CONTRAST DYE, ASPIRIN, BEE STING, CYCLOBENZAPRINE, DIAZEPAM, LATEX, PENICILLIN, PREDNISONE, SHELLFISH, SULFA ANTIBIOTICS, SULFIDES, CHLORPHENIRAMINE, PHENYLEPHRINE, PHENRYLPROPANOLAMINE AND PHENYLTOLOXAMINE. MEDICATIONS: In the hospital, she has been getting scopolamine patch, MiraLax powder as directed, morphine 60 mg q. 12 hours, Dilaudid 0.5-1 mg q. 3 hourly p.r.n., oxycodone 5-10 mg q. 4 hourly p.r.n., Synthroid 112 mcg daily, senna 2 tablets at night, baclofen 20 mg t.i.d., gabapentin 900 mg t.i.d., Zofran as directed, lorazepam 0.5 mg q. 8 hourly p.r.n., Tylenol as needed, hydroxyzine 25 mg q. 8 hourly p.r.n., famotidine 20 mg daily, Benadryl 25 mg as directed. REVIEW OF SYSTEMS: Other systemic review unremarkable except those mentioned in history of present complaint. PHYSICAL EXAMINATION: GENERAL: On examination in the medical floor, she was still having some abdominal pain, left lower quadrant, with some distress. VITAL SIGNS: Temperature 37.5, pulse was 130, blood pressure 104/67, saturation 95% on 2 liters nasal cannula. HEENT: Unremarkable. NECK: Supple, no JVD, no bruit. CHEST: Clear to auscultate bilaterally. HEART: S1, S2 regular, no murmur. ABDOMEN: Soft, tender in the left lower quadrant with guarding and probable rebound tenderness. Bowel sounds present. EXTREMITIES: Negative. MUSCULOSKELETAL: Did not show any acute arthritis. CENTRAL NERVOUS SYSTEM: She is alert, awake, oriented x3. LABORATORY DATA: Noted today white count was 12.65, H&H 12.6/37.3, platelets 277. Sodium 137, potassium 4.2, chloride 101, carbon dioxide 29, BUN 9, creatinine 0.75, random glucose 107. UA examination that was done on of last month unremarkable. EKG and echocardiogram reviewed, those were done before. EKG today showed sinus tachy, rate of 130 per minute. IMPRESSION AND PLAN: 1. Persistent tachycardia. Following surgery 05/20/2017, the patient has desaturation as well. We need to rule out any pulmonary embolism. The patient cannot have any CTA due to Contrast allergy. We will get a V/Q scan to rule out pulmonary embolism. She may have diverticulitis with ongoing left lower quadrant pain, we will get a CT of the abdomen and pelvis to rule out that. She will need antibiotic if it is positive.Discussed with Dr Thompson-High risk for bleeding , no anticoagulation for now. 2. Status post lumbar decompression and fusion surgery on Tuesday. She has ruled out any possibility of infection, so we will get UA and also chest x-ray to rule out pneumonia. 3. Hypothyroidism. Continue with replacement. 4. Chronic pain, has been taking morphine and Dilaudid, continue with those. 5. Deep venous thrombosis prophylaxis. She has SCDs on, not been taking any pharmacologic anticoagulation. Thank you for this consultation. We will follow this patient with you during hospitalization. JULIEN
[2017-05-22] MEDS: SODIUM CHLORIDE 0.9% 1000ML 1,000 ML IV SCH ×2 (03:41→12:51)
[2017-05-22] MEDS ORDERED: POLYETHYLENE (MIRALAX) 17 GM PACK PO SCH (06:00)
[2017-05-22] MEDS: POLYETHYLENE (MIRALAX) 17 GM PACK PO SCH ×3 (06:24→18:10)
[2017-05-22] MEDS: OXYCODONE HCL IR 5 MG TAB (IMMEDIATE RELEASE) PO PRN (06:24)
[2017-05-22] MEDS: LEVOTHYROXINE 112 MCG TAB PO SCH (06:24)
[2017-05-22] MEDS ORDERED: NURSING DECISION MEDICATION ORDER SCH (06:45)
--- NOTE | 2017-05-22 08:19 | DIAGNOSTIC IMAGING REPORT ---
CT SCAN OF THE ABDOMEN AND PELVIS WITHOUT CONTRAST CLINICAL HISTORY: Lower abdominal pain. History of recent spinal surgery. COMPARISON STUDY: No previous studies for comparison. TECHNIQUE: CT scan of the abdomen and pelvis was performed from the lung bases to the proximal femurs. Images are reviewed in the axial, sagittal, and coronal planes. IV contrast was not administered for this examination. A dose lowering technique was utilized adhering to the principles of ALARA. CT DOSE: 355.90 mGy.cm FINDINGS: Lower chest: There are by basilar atelectatic changes. Liver: There is hepatic steatosis. No focal hepatic masses are visualized. The liver measures 20.3 cm in length. Gallbladder: Unremarkable. Spleen: Normal in size and attenuation. Pancreas: Unremarkable. Adrenal glands: Unremarkable. Kidneys: The unenhanced kidneys are normal in size without hydronephrosis. There is no contour deforming renal mass lesion. No renal calculi are identified. Bowel: There are no transition zones indicate bowel obstruction. There is no acute diverticulitis. There are no findings to indicate acute appendicitis. Peritoneum: There is no intraperitoneal free air or abdominal ascites. Vasculature: The abdominal aorta is normal in course and caliber. Adenopathy: None. Pelvic viscera: The uterus is surgically absent. There is air within the bladder, likely iatrogenic. Skeletal structures: There are extensive postsurgical changes present within the spine. There are endplate erosive changes at the L2-3 level. There is retrolisthesis of L2 on L3. IMPRESSION: 1. No evidence of bowel obstruction. No evidence of free air 2. Scattered fluid-filled small bowel loops with air-fluid levels, likely secondary to an ileus 3. Air within the bladder, likely iatrogenic 4. Postsurgical changes present within the lumbar spine. Fragmentation, sclerosis, and erosive endplate changes at the L2-3 level. Infection cannot be excluded on the basis of this study. 5. Hepatic steatosis Electronically signed by: Will Camacho M.D. 05/22/2017 8:18 AM Dictated Date/Time: 05/22/2017 8:10 AM
--- NOTE | 2017-05-22 09:25 | DIAGNOSTIC IMAGING REPORT ---
CHEST 2 VIEWS ROUTINE CLINICAL HISTORY: Difficulty breathing COMPARISON STUDY: 04/25/2017 FINDINGS: The cardiac and mediastinal contours are normal. There are increasing bilateral subsegmental atelectatic changes. There is no lobar consolidation. There is no failure. There are no pleural effusions. Postsurgical changes are present within the spine.[ IMPRESSION: Progressive subsegmental atelectatic changes. No evidence of failure. Electronically signed by: Will Camacho M.D. 05/22/2017 9:23 AM Dictated Date/Time: 05/22/2017 9:21 AM
--- NOTE | 2017-05-22 09:32 | DIAGNOSTIC IMAGING REPORT ---
ULTRASOUND VENOUS DOPPLER LWR EXT BILA CLINICAL HISTORY: Bilateral leg swelling COMPARISON STUDY: No previous studies for comparison. FINDINGS: Real-time and color flow Doppler imaging were performed. Flow was seen within the femoral, popliteal and calf veins with no intraluminal thrombus demonstrated. The saphenous vein is patent. IMPRESSION: No evidence of lower extremity DVT. Electronically signed by: Will Camacho M.D. 05/22/2017 9:31 AM Dictated Date/Time: 05/22/2017 9:30 AM
--- NOTE | 2017-05-22 10:03 | DIAGNOSTIC IMAGING REPORT ---
NUCLEAR MEDICINE PULMONARY VENTILATION/PERFUSION SCAN CLINICAL HISTORY: Difficulty breathing. Possible pulmonary embolism. COMPARISON STUDY: Chest x-ray dated 05/22/2017 FINDINGS: The patient was ventilated utilizing 32.8 mCi of technetium 99m DTPA aerosol. The patient was perfused utilizing 5.6 mCi of technetium 99m MAA. Multiple projectional images were acquired. There is mild central deposition of the aerosol consistent with airway disease. There is slightly heterogeneous perfusion, but no significant VQ mismatches are visualized. This study is of low probability of acute pulmonary embolism. IMPRESSION: Low probability of acute pulmonary embolism Electronically signed by: Will Camacho M.D. 05/22/2017 10:02 AM Dictated Date/Time: 05/22/2017 10:00 AM
[2017-05-22] MEDS ORDERED: CHLORPROMAZINE HCL INJ 25 MG/ML 2 ML AMP IM ONE (10:15)
[2017-05-22] MEDS: MoRPHine SULFATE CR 15 MG TAB (MS CONTIN) PO SCH ×2 (10:18→21:06)
[2017-05-22] MEDS: BACLOFEN TAB 20 MG TAB PO SCH ×3 (10:20→21:05)
[2017-05-22] MEDS: GABAPENTIN 300 MG CAP PO SCH ×3 (10:20→21:05)
[2017-05-22] MEDS ORDERED: CHLORPROMAZINE HCL IM ONE (10:45)
--- NOTE | 2017-05-22 10:52 | Progress Note ---
Progress Note Date of Service May 22, 2017. Progress Note Patient states that her back pain is well controlled. She has marked resolution of her leg pain. She still describing some abdominal spasms specifically along the left lower quadrant. She does state she is having positive flatus. No bowel movement at this time. On exam she is excellent strength testing. She does have some tenderness to palpation of the abdomen vertically in the left side. It is not rigid. Abdomen is soft. Thus far her workup has been negative for PE. Assessment status post lumbar decompression fusion per plan at this time will continue physical therapy. I will obtain a KUB today to assess her bowels and rule out developing ileus. If she fails to improve in the next 24 hours we may consider consultation with general surgery.
--- NOTE | 2017-05-22 11:09 | DIAGNOSTIC IMAGING REPORT ---
KUB CLINICAL HISTORY: Abdominal pain COMPARISON STUDY: No previous studies for comparison. FINDINGS: There is gaseous prominence of both small bowel and colonic loops. There are no transition zones to indicate a significant bowel obstruction. There are postsurgical changes present within the lumbar spine. There is a overlying surgical drain. IMPRESSION: 1. Suspected ileus 2. Postsurgical changes within the lumbar spine Electronically signed by: Will Camacho M.D. 05/22/2017 11:07 AM Dictated Date/Time: 05/22/2017 11:06 AM
[2017-05-22] MEDS: ACETAMINOPHEN 500 MG TAB PO PRN (14:01)
[2017-05-22] MEDS ORDERED: VANCOMYCIN CONSULT ACTIVE PRN ×2 (15:30)
[2017-05-22] MEDS ORDERED: AZTREONAM IV 1,000 MG in DEXTROSE 5% 100ML 100 ML IV ONE (16:00)
[2017-05-22] MEDS ORDERED: VANCOMYCIN IV 1,500 MG in SODIUM CHLORIDE 0.9% 500ML 500 ML IV ONE (16:00)
--- NOTE | 2017-05-22 20:39 | Pharmacy Progress Note ---
Pharmacy Abx Initial Consult Date of Service May 22, 2017. Pharmacy Dosing Scope Date of Consult: 05/22/17 Consultation requested by: Dr. Baker Pharmacy is consulted to initiate Vancomycin IV dosing therapy, order appropriate labs and adjust drug dose/frequency. Subjective The patient is a 52 year old female admitted on May 20, 2017 at 12:46. Objective Height (Feet): 5 Height (Inches): 4 Weight (Kilograms): 65.900 Vital Signs (Past 12Hrs) Vital Signs Past 12 Hours Date Time Temp Pulse Resp B/P (MAP) Pulse Ox O2 Delivery O2 Flow Rate FiO2 05/22/17 17:47 108/75 (86) 05/22/17 15:50 Room Air 05/22/17 15:14 37.2 100 18 109/73 (85) 92 Room Air 05/22/17 13:46 38.2 128 16 95/61 (72) 93 Room Air 05/22/17 10:42 95 05/22/17 10:28 117 16 108/65 (79) 95 Room Air Micro Results Date/Time Source Procedure Growth Status 05/22/17 16:21 Blood Blood Culture Pending Received 05/22/17 16:19 Blood Blood Culture Pending Received Assessment & Plan Assessment 52 year old female s/p lumbar fusion surgery 2 days ago. Plan Vancomycin for treatment of possible bacteremia Vancomycin IV * Loading dose: 1500 mg (~23 mg/kg) * Maintenance dose: 1000 mg IV ([15 mg/kg) every 12 hours * Goal trough level for possible bacteremia: 15 to 20 mcg/mL * Trough level ordered for 05/24/17 before dose at 1400. Pharmacy will continue to follow and will adjust dose/frequency as necessary. Thank you.
[2017-05-22] MEDS: ONDANSETRON INJ 2 MG/ML 2 ML VIAL IV PRN (20:41)
[2017-05-22] MEDS: DOCUSATE SODIUM/SENNA 50/8.6MG TAB PO SCH (21:05)
[2017-05-22] MEDS: METOCLOPRAMIDE HCL INJ 5 MG/ML 2 ML VIAL IV PRN (23:48)
[2017-05-23] VITALS (19 sets, daily range): BP systolic 89–120; BP diastolic 59–77; PULSE 99–133; TEMP 36.3–37.1; O2SAT 95–100
[2017-05-23] MEDS: AZTREONAM IV 1,000 MG in DEXTROSE 5% 100ML 100 ML IV SCH ×4 (00:23→23:57)
[2017-05-23] MEDS: SODIUM CHLORIDE 0.9% 1000ML 1,000 ML IV SCH ×3 (00:24→16:51)
[2017-05-23] MEDS: VANCOMYCIN IV 1,000 MG in SODIUM CHLORIDE 0.9% 250ML 250 ML IV SCH ×2 (02:10→13:37)
[2017-05-23] MEDS: ONDANSETRON INJ 2 MG/ML 2 ML VIAL IV PRN (04:39)
[2017-05-23] MEDS: POLYETHYLENE (MIRALAX) 17 GM PACK PO SCH ×3 (06:00→12:00)
[2017-05-23] MEDS: METOCLOPRAMIDE HCL INJ 5 MG/ML 2 ML VIAL IV PRN (06:06)
[2017-05-23 06:23] LABS: CREATININE 0.52 mg/dl (0.60-1.20)
[2017-05-23] MEDS: LEVOTHYROXINE 112 MCG TAB PO SCH (06:42)
[2017-05-23 06:50] LABS: HEMATOCRIT 33.5 % (37-47); MEAN CELL VOLUME 92.5 fL (80-100); MEAN CORPUSCULAR HEMOGLOBIN 30.4 pg (25-34); MEAN CORPUSCULAR HGB CONC 32.8 g/dl (32-36); MEAN PLATELET VOLUME 10.9 fL (7.4-10.4); PLATELET COUNT 234 K/uL (130-400); RED CELL DISTRIBUTION WIDTH CV 14.9 % (11.5-14.5); WHITE BLOOD COUNT 9.79 K/uL (4.8-10.8)
[2017-05-23] MEDS: BACLOFEN TAB 20 MG TAB PO SCH ×3 (07:43→22:24)
[2017-05-23] MEDS: GABAPENTIN 300 MG CAP PO SCH ×3 (07:43→20:43)
[2017-05-23] MEDS: MoRPHine SULFATE CR 15 MG TAB (MS CONTIN) PO SCH ×2 (07:48→20:48)
--- NOTE | 2017-05-23 07:59 | Anesthesiology Progress Note ---
Anesthesia Post Op Note Date & Time May 23, 2017 at 07:58 Vital Signs Pain Intensity: 3.0 Vital Signs Past 12 Hours Date Time Temp Pulse Resp B/P (MAP) Pulse Ox O2 Delivery O2 Flow Rate FiO2 05/23/17 07:49 98 Room Air 05/23/17 07:47 36.6 126 16 110/74 (86) 98 Room Air 05/23/17 06:40 36.6 119 16 105/73 (84) 97 Nasal Cannula 3.0 05/23/17 06:19 123 100 Nasal Cannula 3.0 05/23/17 06:09 131 119/77 (91) 97 Nasal Cannula 3.0 05/23/17 05:12 123 98 Nasal Cannula 2.0 05/23/17 03:46 116 100 Nasal Cannula 3.0 05/23/17 02:35 119 97 Nasal Cannula 3.0 05/23/17 02:09 127 108/74 (85) 98 Nasal Cannula 3.0 05/23/17 00:45 128 115/72 (86) 100 3.0 05/23/17 00:30 133 120/77 (91) 100 Nasal Cannula 4.0 05/22/17 23:35 37.2 166 86 Nasal Cannula 2.0 05/22/17 23:35 Nasal Cannula 05/22/17 23:30 96 Nasal Cannula 2.0 05/22/17 23:29 36.9 139 16 98/67 (77) 83 Room Air Notes Mental Status: alert / awake / arousable, participated in evaluation Pt Amnestic to Procedure: Yes Nausea / Vomiting: adequately controlled Pain: adequately controlled Airway Patency, RR, SpO2: stable & adequate BP & HR: stable & adequate Hydration State: stable & adequate Anesthetic Complications: no major complications apparent
--- NOTE | 2017-05-23 11:53 | Progress Note ---
Progress Note Date of Service May 23, 2017. Progress Note Patient's abdominal pain is somewhat improved. Again leg symptoms are resolved. Back pain is controlled. Her ALEXANDER drains decreased appropriately. On exam she is good strength testing her abdomen is soft. Assessment status post lumbar decompression fusion per plan at this time she clearly has a postop ileus it seems to be resolving. I have can encourage her to continue with ambulation today and we will most likely consider discharge home tomorrow.
--- NOTE | 2017-05-23 12:11 | Progress Note ---
Progress Note Date of Service May 23, 2017. Progress Note Patient remains tachycardic heart rate in 120s-130 Denies of any symptom Had a temperature spike of 38 yesterday Started empirically with IV vancomycin/Azactam (patient has allergy to penicillin) Afebrile this a.m. No complaint of cough, chest discomfort, shortness of breath Hemoglobin 11 Twelve-lead EKG today morning shows heart rate [address]-T wave changes in anterior lateral leads when compared to ECG of May 22, 2017 inverted T waves have replaced nonspecific T-wave abnormality in anterior leads Prior history of cardiac disease VQ scan. Was low probability for PE Lower extremity Doppler negative for DVT Ordered for troponin to be checked Resting echo Cardiology evaluation Patient will be transferred to telemetry for cardiac workup Spoke with Dr. Thompson, updated treatment plan
--- NOTE | 2017-05-23 15:20 | Cardiology Consultation ---
Cardiology Consultation Date of Consultation: May 23, 2017 Requesting Physician: Dr. Baker Attending Senior Project Controls Specialist: Dr. Bowen (Amada Peña PA-C) History of Present Illness Patient is a 52 year old female with history of hypothyroidism, chronic DDD, anemia, GERD, and chronic tobacco abuse, who is post op decompression spinal surgery. In the post op setting patient was found to have persistent tachycardia , with HR's ranging 110-130. She is asymptomatic. Patient underwent VQ scan which was low prob for PE. Venous duplex negative. She has also been mildly hypoxic, with atelectasis noted on xray. No pleural effusions/CHF. She denies a history of cardiovascular disease. She notes being told she had a murmur long ago. Does not recall having a prior stress test or echocardiogram. No history of CHF, arrhythmia, CA. At time of consult, patient resting in bed feeling well. No chest pain or palpitations. No dizziness. She denies symptoms of SOB, orthopnea, PND. No edema. Wearing TEDS and SCD's. No significant back pain. She noted mild abdominal pain yesterday, slight cramping today. Possible ileus noted on KUB/ abdominal CT. (Amada Peña PA-C) Past Medical/Surgical History Problem List: Medical Problems: (1) Lumbar stenosis with neurogenic claudication 2. tobacco abuse 3. GERD 4. Hypothyroidism (Amada Peña PA-C) Family History Non contributory (Amada Peña PA-C) Social History Smoking Status: Current Every Day Smoker Drug Use: none Marital Status: (Amada Peña PA-C) Review Of Systems General: The patient denies weight change, night sweats, fever, chills. Head: The patient denies headache and prior head trauma. Cardiovascular: The patient denies chest pain or chest discomfort, dyspnea on exertion, palpitations, PND, orthopnea, edema, spontaneous shortness of breath, syncope and near syncope. Pulmonary: The patient denies cough, wheeze, pleurisy, hemoptysis, sputum, and excessive snoring. Gastrointestinal: The patient denies nausea, vomiting, diarrhea, constipation, bloating, hematemesis, hematochezia, and abdominal pain. Skin: The patient denies diaphoresis and rash. Musculoskeletal: +mild back pain. The patient denies joint pain, joint swelling , myalgia, neck pain and prior injuries. Neurological: The patient denies prior stroke and seizures (Amada Peña PA-C) Allergies Coded Allergies: Iodinated Diagnostic Agents (Verified Allergy, Severe, SEE NOTES, 05/20/17) PT REPORTS ALLERGY IS TO "RADIOACTIVE IODINE" - HAD SEVERE ITCHINESS AND HIVES Aspirin (Verified Allergy, Unknown, THROAT SWELLING, HIVES, ITCHING, ) BEE STING (Verified Allergy, Unknown, ANAPHYLAXIS, 05/20/17) Cyclobenzaprine (Verified Allergy, Unknown, MUSCLE SPASMS, 05/20/17) Diazepam (Verified Allergy, Unknown, GETS VIOLENT, 05/20/17) Latex1 -Allergic Contact Dermititis (Verified Allergy, Unknown, CONTACT - REDNESS RASH, 05/20/17) Penicillins (Verified Allergy, Unknown, ITCHING HIVES THROAT SWELLING, 05/20) Prednisone (Verified Allergy, Unknown, FELT NUTS, 05/20/17) Shellfish (Verified Allergy, Unknown, SWELLING ITCHING THROAT HIVES, ) Sulfa Antibiotics (Verified Allergy, Unknown, HIVES SWELLING THROAT ITCHING, 05/20/17) Sulfites (Verified Allergy, Unknown, "JUST LIKE THE PENICILLIN REACTION" - SEE NOTES, 05/20/17) "PT REPORTS ONLY ANTIBIOTICS SHE CAN TAKE ZITHROMAX AND THE OTHER ONE STARTS WITH A C" Chlorpheniramine (Verified Adverse Reaction, Unknown, HYPERACTIVITY, ) Phenylephrine (Verified Adverse Reaction, Unknown, HYPERACTIVITY, 05/20/17) Phenylpropanolamine (Verified Adverse Reaction, Unknown, HYPERACTIVITY, 05/20/17) Phenyltoloxamine (Verified Adverse Reaction, Unknown, HYPERACTIVITY, ) Medications Reported Home Medications Medications Dose Route/Sig Max Daily Dose Days Date Category Dose Instructions Oxycodone HCl 5 Mg Tab 5-10 Mg PO Q4H PRN 30 05/21/17 Rx [Ibuprofen ] 1,200 Mg PO UD PRN 04/25/17 Reported PT REPORTS DOSE IS 1200 MG - PT REPORTS "ONCE MAYBE EVERY THREE DAYS IF NEEDED" Ms Contin (Morphine Sulfate) 60 Mg Tab 60 Mg PO Q12 04/25/17 Reported Synthroid (Levothyroxine Sodium) 112 Mcg Tab 112 Mcg PO QAM 04/25/17 Reported Stool Softener (Docusate Sodium) 100 Mg Cap 100 Mg PO QAM 01/22/16 Reported [Vicodin] 1 Tab PO Q6H PRN 01/22/16 Reported 10/325 MG Lioresal (Baclofen) 10 Mg Tab 20 Mg PO TID 01/22/16 Reported Neurontin (Gabapentin) 300 Mg Cap 900 Mg PO TID 01/22/16 Reported (Amada Peña PA-C) Physical Exam Vital Signs (Last 8hrs): Last 8 Hrs Date Time Temp Pulse Resp B/P (MAP) Pulse Ox O2 Delivery O2 Flow Rate FiO2 05/23/17 13:33 36.6 108 20 112/74 (87) 100 Nasal Cannula 2.0 05/23/17 13:21 36.6 126 16 97 3.0 05/23/17 08:09 Nasal Cannula 3.0 05/23/17 07:49 98 Room Air 05/23/17 07:47 36.6 126 16 110/74 (86) 98 Nasal Cannula 3.0 05/23/17 06:40 36.6 119 16 105/73 (84) 97 Nasal Cannula 3.0 General Appearance: Alert and Oriented x3. NAD. Head: Normocephalic Atraumatic. Eyes: PERRLA, EOMI, conjunctiva and sclera clear Neck: Supple. No carotid bruits noted. No JVD. No HJD. Respiratory: scattered course breath sounds. no rales. Cardiovascular: Mildly tachycardic. No murmurs noted. Abdomen: Normal bowel sounds, soft nontender. no abdominal bruits. Extremities: No edema, no clubbing or cyanosis. SCD's in place. Neuro: No focal deficits. Psychiatric: Normal affect. (Amada Peña PA-C) Data Last 24 Hours Test 05/23/17 05:34 05/23/17 12:17 White Blood Count 9.79 K/uL Red Blood Count 3.62 M/uL Hemoglobin 11.0 g/dL Hematocrit 33.5 % Mean Corpuscular Volume 92.5 fL Mean Corpuscular Hemoglobin 30.4 pg Mean Corpuscular Hemoglobin Concent 32.8 g/dl RDW Standard Deviation 51.0 fL RDW Coefficient of Variation 14.9 % Platelet Count 234 K/uL Mean Platelet Volume 10.9 fL Creatinine 0.52 mg/dl Est Creatinine Clear Calc Drug Dose 116.9 ml/min Estimated GFR () 126.4 Estimated GFR (Non- 109.1 Troponin I < 0.015 ng/ml Pro-B-Type Natriuretic Peptide 78 pg/ml Imaging: Chest xray 05/22/17: IMPRESSION: Progressive subsegmental atelectatic changes. No evidence of failure. KUB: IMPRESSION: 1. Suspected ileus 2. Postsurgical changes within the lumbar spine EKG on 05/22/17 reviewed; Sinus tachycardia Nonspecific T wave abnormality, compared with prior EKG, no significant changes. Repeat EKG on 05/23/17: Sinus tach, anterior T wave abnormality noted Telemetry reviewed: NSR, Sinus tachycardia, rates predominantly 100-120. (Amada Peña PA-C) Assessment & Plan 1. Persistent sinus tachycardia in the post op setting -Scans negative for PE/DVT -Hbg 11. Monitor -Patient is asymptomatic. -Mild T wave inversion in anterior leads. Negative cardiac enzymes -Await echo. -no indication to treat mild sinus tachycardia at this time 2. Mild hypoxia - likely atelectasis and underlying COPD from chronic tobacco abuse -incentive spirometry. -supplemental O2, wean as tolerated -smoking cessation strongly encouraged. 3. Post op spinal decompression -increase activities as tolerated Case discussed with Dr. Bowen. Will follow (Amada Peña PA-C) CARDIOLOGY ATTENDING ADDENDUM: The patient was seen and personally examined. Agree with Amada Peña PA-C's findings and plans as documented above. This patient has had an excessive workup for mild asymptomatic sinus tachycardia which is most likely multifactorial including her recent surgery. At this point I would not recommend any additional cardiac testing. I would treat the patient's pain were appropriate. She is not profoundly anemic but is anemic which may be contributing to the sinus tachycardia. Also she may be just deconditioning from the surgery. We will follow along with you during her hospital stay. (Tarik Bowen, DO)
[2017-05-23] MEDS ORDERED: PERFLUTREN LIPID MICROSPHERE (DEFINITY) IV ONE (15:26)
[2017-05-23] MEDS: ACETAMINOPHEN 500 MG TAB PO PRN (16:52)
[2017-05-23] MEDS ORDERED: METOPROLOL TARTRATE 25 MG TAB PO ONE (17:07)
[2017-05-23] MEDS ORDERED: NURSING VERBAL MED ORDER ONE (17:30)
--- NOTE | 2017-05-23 17:45 | ECHOCARDIOGRAM REPORT ---
*NOTICE TO RECEIVING REPUBLICAN AGENCY This information is strictly Confidential and protected under [place] law. [place] law prohibits you from making any further disclosure of this information unless further disclosure is expressly permitted by the written consent of the person to whom it pertains or is authorized by law. A general authorization for the release of medical or other information is not sufficient for this purpose. Hospital accepts no responsibility if the information is made available to any other person, INCLUDING THE PATIENT. Interpretation Summary * Name: GABO GRANDA Study Date: 05/23/2017 03:10 PM BP: 112/74 mmHg * Patient Location: 218 HR: 108 * : 1965 (M/d/yyyy) Gender: Female Height: 64 in * Age: 52 yrs Ethnicity: CA Weight: 145 lb * Ordering Physician: Beatrice Baker * Referring Physician: Flo Thompson D.O. * Performed By: Celia Roth RDCS * * Reason For Study: SINUS TACHYCARDIA, POST-OP * BSA: 1.7 m2 * -- Conclusions -- * The right ventricular cavity is small. * The right ventricular systolic function is normal. * The left atrial size is normal. * Right atrial size is normal. * No significant valvular pathology. * The left ventricular cavity is small. * The left ventricle is hyperdynamic. * Ejection Fraction = >70 %. Procedure Details * A complete two-dimensional transthoracic echocardiogram was performed (2D, M-mode, Doppler and color flow Doppler). * A contrast injection of Definity was performed to improve assessment of LV function. * Contrast was injected into an intravenous site in the right arm. * One vial of Definity ultrasound contrast was diluted in normal saline to a total volume of 10 ml. A total of '3' ml of solution was administered during imaging. * Lot # [id number] of Definity utilized for procedure. * Expiration date 06/02. Left Ventricle * The left ventricular cavity is small. * Ejection Fraction = >70 %. * The left ventricle is hyperdynamic. Right Ventricle * The right ventricular cavity is small. * The right ventricular systolic function is normal. Atria * The left atrial size is normal. * Right atrial size is normal. * The interatrial septum is intact with no evidence for an atrial septal defect. Mitral Valve * The mitral valve is grossly normal. * Significant mitral regurgitation is absent. Tricuspid Valve * The tricuspid valve is not well visualized, but is grossly normal. * Significant tricuspid regurgitation is absent. Aortic Valve * The aortic valve is normal in structure and function. Pulmonic Valve * The pulmonic valve is not well seen, but is grossly normal. * There is no pulmonic valvular regurgitation. Great Vessels * The aortic root and proximal ascending aorta are normal sized. Pericardium/Pleural * There is no pericardial effusion. MMode 2D Measurements and Calculations IVSd 0.85 cm IVSs 1.2 cm LVIDd 4.6 cm LVIDs 2.8 cm LVPWd 0.84 cm LVPWs 1.5 cm IVS/LVPW 1.0 FS 39.1 % EDV(Teich) 97.7 ml ESV(Teich) 29.7 ml EF(Teich) 69.6 % EDV(cubed) 97.8 ml ESV(cubed) 22.1 ml EF(cubed) 77.5 % % IVS thick 42.3 % % LVPW thick 82.3 % LV mass(C)d 127.2 grams LV mass(C)dI 74.5 grams/m\S\2 LV mass(C)s 124.4 grams LV mass(C)sI 72.9 grams/m\S\2 CO(Teich) 6.6 l/min CI(Teich) 3.9 l/min/m\S\2 SV(Teich) 68.1 ml SI(Teich) 39.9 ml/m\S\2 CO(cubed) 7.4 l/min CI(cubed) 4.3 l/min/m\S\2 SV(cubed) 75.8 ml SI(cubed) 44.4 ml/m\S\2 ACS 1.7 cm asc Aorta Diam 2.6 cm LVOT diam 1.7 cm LVOT area 2.4 cm\S\2 LVAd ap4 25.8 cm\S\2 LVLd ap4 8.1 cm EDV(MOD-sp4) 67.5 ml LVAs ap4 12.1 cm\S\2 LVLs ap4 6.4 cm ESV(MOD-sp4) 20.1 ml EF(MOD-sp4) 70.2 % LVAd ap2 25.7 cm\S\2 LVLd ap2 7.8 cm EDV(MOD-sp2) 73.4 ml LVAs ap2 12.5 cm\S\2 LVLs ap2 6.6 cm ESV(MOD-sp2) 21.7 ml EF(MOD-sp2) 70.4 % CO(MOD-sp4) 4.6 l/min CI(MOD-sp4) 2.7 l/min/m\S\2 SV(MOD-sp4) 47.4 ml SI(MOD-sp4) 27.8 ml/m\S\2 CO(MOD-sp2) 5.0 l/min CI(MOD-sp2) 2.9 l/min/m\S\2 SV(MOD-sp2) 51.7 ml SI(MOD-sp2) 30.3 ml/m\S\2 Doppler Measurements and Calculations MV E max darron 89.2 cm/sec MV A max darron 81.5 cm/sec MV E/A 1.1 MV dec time 0.16 sec Ao V2 max 154.7 cm/sec Ao max PG 9.6 mmHg Ao max PG (full) 3.8 mmHg SUSAN(V,A) 1.9 cm\S\2 SUSAN(V,D) 1.9 cm\S\2 LV V1 max PG 5.8 mmHg LV V1 max 120.3 cm/sec MR max darron 305.4 cm/sec MR max PG 37.3 mmHg PA V2 max 79.1 cm/sec PA max PG 2.5 mmHg
--- NOTE | 2017-05-23 20:30 | Progress Note ---
Internal Med Progress Note Date of Service: May 23, 2017. Provider Documentation: SUBJECTIVE: Heart rate much improved after initiation of beta-donald Patient denies of any palpitation, no dizzy spell OBJECTIVE: Vital Signs-as noted below Exam: General-no sign of distress Eyes-sclera nonicteric ENT-moist oral mucosa Neck-no JVD Lungs-clear to auscultate Heart-regular S1-S2 Abdomen-soft nontender Extremities-status post back surgery, no lower extremity edema Neuro-alert awake oriented 3, no focal neurological deficit deficit Lab data as noted below. ASSESSMENT & PLAN: SINUS TACHYCARDIA POSTOP Patient remains symptomatic workup for DVT/PE negative (VQ scan low probability for PE, lower extremity Doppler negative for DVT) Hemoglobin stable Troponin negative Appreciate cardiology evaluation Echo: The right ventricular cavity small Right ventricular systolic function is normal Left atrial size is normal No significant valvular pathology left ventricular cavity small Left ventricle is hyperdynamic Ejection fraction more than 70% -No prior history of arrhythmia or cardiac disease -Ordered for low dose Lopressor She will be continued with IV fluids, noted to be hyperdynamic LV ,EF more than 70%; suggestive of volume depletion FEVER Afebrile this morning Normal white count Blood cultures pending DC antibiotic, if no growth noted in blood culture RECENT LUMBAR DECOMPRESSION REVISION SURGERY Continue management as per orthopedics DVT PROPHYLAXIS SCD and teds Pharmacological anticoagulation avoided Given recent spinal surgery DISPOSITION Continue PT OT Observe in telemetry for 24 hours for evaluation of tachycardia Vital Signs: Date Time Temp Pulse Resp B/P (MAP) Pulse Ox O2 Delivery O2 Flow Rate FiO2 05/23/17 18:38 36.8 104 97/67 (77) 05/23/17 17:28 132 91/59 (70) 05/23/17 16:00 100 Room Air 05/23/17 15:39 36.3 104 20 93/61 (72) 100 Nasal Cannula 1.0 05/23/17 13:33 36.6 108 20 112/74 (87) 100 Nasal Cannula 2.0 05/23/17 13:28 37.0 106 18 114/74 (87) 100 Nasal Cannula 3.0 05/23/17 13:21 36.6 126 16 97 3.0 05/23/17 08:09 Nasal Cannula 3.0 05/23/17 07:49 98 Room Air 05/23/17 07:47 36.6 126 16 110/74 (86) 98 Nasal Cannula 3.0 05/23/17 06:40 36.6 119 16 105/73 (84) 97 Nasal Cannula 3.0 05/23/17 06:19 123 100 Nasal Cannula 3.0 05/23/17 06:09 131 119/77 (91) 97 Nasal Cannula 3.0 05/23/17 05:12 123 98 Nasal Cannula 2.0 05/23/17 03:46 116 100 Nasal Cannula 3.0 05/23/17 02:35 119 97 Nasal Cannula 3.0 05/23/17 02:09 127 108/74 (85) 98 Nasal Cannula 3.0 05/23/17 00:45 128 115/72 (86) 100 3.0 05/23/17 00:30 133 120/77 (91) 100 Nasal Cannula 4.0 05/22/17 23:35 37.2 166 86 Nasal Cannula 2.0 05/22/17 23:35 Nasal Cannula 05/22/17 23:30 96 Nasal Cannula 2.0 05/22/17 23:29 36.9 139 16 98/67 (77) 83 Room Air Lab Results: Results Past 24 Hours Test 05/23/17 05:34 05/23/17 12:17 Range/Units White Blood Count 9.79 4.8-10.8 K/uL Red Blood Count 3.62 4.2-5.4 M/uL Hemoglobin 11.0 12.0-16.0 g/dL Hematocrit 33.5 37-47 % Mean Corpuscular Volume 92.5 80-100 fL Mean Corpuscular Hemoglobin 30.4 25-34 pg Mean Corpuscular Hemoglobin Concent 32.8 32-36 g/dl RDW Standard Deviation 51.0 36.4-46.3 fL RDW Coefficient of Variation 14.9 11.5-14.5 % Platelet Count 234 130-400 K/uL Mean Platelet Volume 10.9 7.4-10.4 fL Creatinine 0.52 0.60-1.20 mg/dl Est Creatinine Clear Calc Drug Dose 116.9 ml/min Estimated GFR () 126.4 Estimated GFR (Non- 109.1 Troponin I < 0.015 0-0.045 ng/ml Pro-B-Type Natriuretic Peptide 78 0-900 pg/ml
[2017-05-23] MEDS: DOCUSATE SODIUM/SENNA 50/8.6MG TAB PO SCH (20:44)
[2017-05-23] MEDS ORDERED: METOPROLOL TARTRATE 25 MG TAB PO SCH (21:00)
[2017-05-24] MEDS: VANCOMYCIN IV 1,000 MG in SODIUM CHLORIDE 0.9% 250ML 250 ML IV SCH (02:42)
[2017-05-24] MEDS: ACETAMINOPHEN 500 MG TAB PO PRN (02:44)
[2017-05-24 03:10] VITALS: BP 101/71; PULSE 92; TEMP 37; O2SAT 98
[2017-05-24] MEDS: SODIUM CHLORIDE 0.9% 1000ML 1,000 ML IV SCH (05:00)
[2017-05-24] MEDS: LEVOTHYROXINE 112 MCG TAB PO SCH (06:32)
[2017-05-24 07:13] LABS: HEMATOCRIT 28.1 % (37-47); HEMOGLOBIN 9.2 g/dL (12.0-16.0); MEAN CELL VOLUME 92.1 fL (80-100); MEAN CORPUSCULAR HEMOGLOBIN 30.2 pg (25-34); MEAN CORPUSCULAR HGB CONC 32.7 g/dl (32-36); MEAN PLATELET VOLUME 10.6 fL (7.4-10.4); PLATELET COUNT 240 K/uL (130-400); RED CELL DISTRIBUTION WIDTH SD 51.2 fL (36.4-46.3); WHITE BLOOD COUNT 7.83 K/uL (4.8-10.8)
[2017-05-24] MEDS: GABAPENTIN 300 MG CAP PO SCH (07:30)
[2017-05-24] MEDS: BACLOFEN TAB 20 MG TAB PO SCH (07:32)
[2017-05-24 07:40] LABS: CALCIUM 7.8 mg/dl (8.5-10.1); CREATININE 0.45 mg/dl (0.60-1.20); POTASSIUM 3.5 mmol/L (3.5-5.1)
[2017-05-24 07:42] VITALS: BP 98/65; PULSE 96; TEMP 37; O2SAT 95
[2017-05-24] MEDS: AZTREONAM IV 1,000 MG in DEXTROSE 5% 100ML 100 ML IV SCH (08:08)
[2017-05-24] MEDS ORDERED: METOPROLOL TARTRATE 25 MG TAB PO SCH (09:00)
[2017-05-24] MEDS: MoRPHine SULFATE CR 15 MG TAB (MS CONTIN) PO SCH (09:19)
--- NOTE | 2017-05-24 10:15 | Cardiology Follow-Up ---
Subjective General Date of Service: May 24, 2017. Chief Complaint: tachycardia Pt evaluation today including: conversation w/ patient, conversation w/ family , physical exam, chart review, lab review, review of studies, review of inpatient medication list History of Present Illness Patient feeling well. Notes irritation pain/burning on left arm near IV site. Hoping to go home today Denies chest pain, SOB. Tolerating RA this AM. Cough improved. Denies palpitations or tachypalpitations. Tolerating low dose metoprolol. Telemetry reviewed - HR's now in 80-90's. Allergies Coded Allergies: Iodinated Diagnostic Agents (Verified Allergy, Severe, SEE NOTES, 05/20/17) PT REPORTS ALLERGY IS TO "RADIOACTIVE IODINE" - HAD SEVERE ITCHINESS AND HIVES Aspirin (Verified Allergy, Unknown, THROAT SWELLING, HIVES, ITCHING, ) BEE STING (Verified Allergy, Unknown, ANAPHYLAXIS, 05/20/17) Cyclobenzaprine (Verified Allergy, Unknown, MUSCLE SPASMS, 05/20/17) Diazepam (Verified Allergy, Unknown, GETS VIOLENT, 05/20/17) Latex1 -Allergic Contact Dermititis (Verified Allergy, Unknown, CONTACT - REDNESS RASH, 05/20/17) Penicillins (Verified Allergy, Unknown, ITCHING HIVES THROAT SWELLING, 05/20) Prednisone (Verified Allergy, Unknown, FELT NUTS, 05/20/17) Shellfish (Verified Allergy, Unknown, SWELLING ITCHING THROAT HIVES, ) Sulfa Antibiotics (Verified Allergy, Unknown, HIVES SWELLING THROAT ITCHING, 05/20/17) Sulfites (Verified Allergy, Unknown, "JUST LIKE THE PENICILLIN REACTION" - SEE NOTES, 05/20/17) "PT REPORTS ONLY ANTIBIOTICS SHE CAN TAKE ZITHROMAX AND THE OTHER ONE STARTS WITH A C" Chlorpheniramine (Verified Adverse Reaction, Unknown, HYPERACTIVITY, ) Phenylephrine (Verified Adverse Reaction, Unknown, HYPERACTIVITY, 05/20/17) Phenylpropanolamine (Verified Adverse Reaction, Unknown, HYPERACTIVITY, 05/20/17) Phenyltoloxamine (Verified Adverse Reaction, Unknown, HYPERACTIVITY, ) Social History Smoking Status: Current Every Day Smoker Hx Tobacco Use In Past Year?: No (QUIT 1-2 MON AGO, SMOKED 2PPD FOR "TOO MANY" YEARS ) Hx Alcohol Use - Type And Amou: No Hx Substance Use - Type And Am: No Review of Systems Respiratory: No cough, No sputum, No shortness of breath, No dyspnea at rest, No hemoptysis Cardiac: No chest pain, No orthopnea, No PND, No edema, No palpitations Physical Exam Vital Signs Last Vital Signs Documentation Date Time Temp Pulse Resp B/P (MAP) Pulse Ox O2 Delivery O2 Flow Rate FiO2 05/24/17 07:42 37.0 96 18 98/65 (76) 95 Room Air 05/23/17 15:39 1.0 Physical Exam Constitutional: General Apperance: heathly-appearing Level of Distress: NAD Psychiatric: Mental Status: active & alert Orientation: to time, to place, to person Head: normocephalic Eyes: Pupils: PERRLA Lungs: Respiratory effort: no dyspnea Auscultation: no wheezing, no rales/crackles Cardiovascular: Heart Auscultation: RRR, normal S1, normal S2, no murmurs Extremities: no cyanosis, no edema Assessment and Plan Assessment and Plan 1. Persistent sinus tachycardia in the post op setting -Scans negative for PE/DVT -Hbg 11, now 9.2. Likely contributing -Mild T wave inversion in anterior leads. Negative cardiac enzymes -Echo revealed hyperdynamic function with small LV/RV chambers suggestive of volume depletion. EF greater than 70%. No wall motion abnormalities. -agree with low dose metoprolol 12.5 mg BID. -gentle hydration -monitor anemia. 2. Mild hypoxia - likely atelectasis and underlying COPD from chronic tobacco abuse -incentive spirometry. -supplemental O2, wean as tolerated -smoking cessation strongly encouraged. -improved this AM. On RA. 3. Post op spinal decompression -increase activities as tolerated 4. Post op anemia - monitor. 5. DVT proph - TEDS/SCD, ambulate 6. Possible phlebitis/cellulitis, left arm at IV site. Treatment per hospitalist. Stable cardiac signs/symptoms. No further cardiac testing warranted. Continue current medications Will sign off. Please notify if there are additional questions or concerns. CARDIOLOGY ATTENDING ADDENDUM: The patient was seen and personally examined. Agree with Amada Peña PA-C's findings and plans as documented above. Laboratory Results Last 24 Hours Test 05/23/17 12:17 05/24/17 06:54 Troponin I < 0.015 ng/ml Pro-B-Type Natriuretic Peptide 78 pg/ml White Blood Count 7.83 K/uL Red Blood Count 3.05 M/uL Hemoglobin 9.2 g/dL Hematocrit 28.1 % Mean Corpuscular Volume 92.1 fL Mean Corpuscular Hemoglobin 30.2 pg Mean Corpuscular Hemoglobin Concent 32.7 g/dl RDW Standard Deviation 51.2 fL RDW Coefficient of Variation 15.0 % Platelet Count 240 K/uL Mean Platelet Volume 10.6 fL Sodium Level 138 mmol/L Potassium Level 3.5 mmol/L Chloride Level 105 mmol/L Carbon Dioxide Level 27 mmol/L Anion Gap 6.0 mmol/L Blood Urea Nitrogen 5 mg/dl Creatinine 0.45 mg/dl Est Creatinine Clear Calc Drug Dose 141.7 ml/min Estimated GFR () 132.6 Estimated GFR (Non- 114.4 BUN/Creatinine Ratio 12.0 Random Glucose 87 mg/dl Calcium Level 7.8 mg/dl
[2017-05-24] MEDS ORDERED: LPR25 PO (11:30)
[2017-05-24 11:31] VITALS: BP 106/66; PULSE 93; TEMP 37.1; O2SAT 95
--- NOTE | 2017-05-24 11:56 | Progress Note ---
Medicine Progress Note Date & Time of Visit: May 24, 2017 at 11:42. Subjective Pt was seen and examined Lying in bed with no distress Pt said that she feels fine Her breathing is stable Denies any chest pain, palpitation, dizziness and SOB Objective Last 8 Hrs Date Time Temp Pulse Resp B/P (MAP) Pulse Ox O2 Delivery O2 Flow Rate FiO2 05/24/17 08:00 Room Air 05/24/17 07:42 37.0 96 18 98/65 (76) 95 Room Air 05/24/17 04:00 Room Air Physical Exam: General- No acute distress Head- atraumatic Eyes- PERRL, EOMI ENT- oropharynx clear Neck- supple, no JVD Lungs- clear to auscultation Heart- No murmur Abdomen- normal bowel sounds, soft Extremities- no calf tenderness Neuro- alert, oriented x 3; PERRL, EOMI Skin- warm & dry Laboratory Results: Last 24 Hours Test 05/23/17 12:17 05/24/17 06:54 Troponin I < 0.015 ng/ml Pro-B-Type Natriuretic Peptide 78 pg/ml White Blood Count 7.83 K/uL Red Blood Count 3.05 M/uL Hemoglobin 9.2 g/dL Hematocrit 28.1 % Mean Corpuscular Volume 92.1 fL Mean Corpuscular Hemoglobin 30.2 pg Mean Corpuscular Hemoglobin Concent 32.7 g/dl RDW Standard Deviation 51.2 fL RDW Coefficient of Variation 15.0 % Platelet Count 240 K/uL Mean Platelet Volume 10.6 fL Sodium Level 138 mmol/L Potassium Level 3.5 mmol/L Chloride Level 105 mmol/L Carbon Dioxide Level 27 mmol/L Anion Gap 6.0 mmol/L Blood Urea Nitrogen 5 mg/dl Creatinine 0.45 mg/dl Est Creatinine Clear Calc Drug Dose 141.7 ml/min Estimated GFR () 132.6 Estimated GFR (Non- 114.4 BUN/Creatinine Ratio 12.0 Random Glucose 87 mg/dl Calcium Level 7.8 mg/dl Assessment & Plan SINUS TACHYCARDIA Possible related to post op and hypovolemia VQ scan showed low probability for PE Doppler of lower extremity negative for DVT 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 Continue metoprolol 12.5 mg BID HR has been stable Advised pt to follow with her PCP with 1 week Case discussed with cardiology stable from cardiology standpoint to d/c home Echo The right ventricular cavity small Right ventricular systolic function is normal Left atrial size is normal No significant valvular pathology left ventricular cavity small Left ventricle is hyperdynamic Ejection fraction more than 70% FEVER has been afebrile for almost 48hrs No leukocytosis Blood cultures no growth Will D/C Azethreonam and Vanco IV Clinically stable S/P LUMBAR DECOMPRESSION REVISION SURGERY Post op day#[address] Thompson Continue management as per orthopedics Will need PT/OT DVT PROPHYLAXIS SCD and teds DISPOSITION Stable discharge home from medically standpoint Continue PT/OT Follow up with your PCP Current Inpatient Medications: Current Inpatient Medications Medications (Trade) Dose Ordered Sig/Autumn Route Start Time Stop Time Status Last Admin Dose Admin Promethazine HCl 12.5 mg/Sodium Chloride 50.5 ml @ 202 mls/hr Q6H PRN IV 05/20/17 12:45 06/19/17 12:44 Ondansetron HCl (Zofran Inj) 4 mg Q6H PRN IV 05/20/17 12:45 06/19/17 12:44 05/23/17 04:39 4 MG Metoclopramide HCl (Reglan Inj) 10 mg Q6H PRN IV 05/20/17 12:45 06/19/17 12:44 05/23/17 06:06 10 MG Lorazepam (Ativan Tab) 0.5 mg Q8H PRN PO 05/20/17 12:45 06/19/17 12:44 05/22/17 23:59 0.5 MG Lorazepam 0.5 mg/ Syringe 1 ml @ 1 mls/min Q8H PRN IV 05/20/17 12:45 06/19/17 12:44 Pneumococcal Polysaccharide Vaccine 1 ea PRN PRN N/A 05/20/17 12:45 06/19/17 12:44 Influenza Virus Vacc Triv Types A&B 1 ea PRN PRN N/A 05/20/17 12:45 06/19/17 12:44 Hydromorphone HCl (Dilaudid Inj) 0.5-1mg prn moder... Q3H PRN IV 05/21/17 06:00 06/04/17 05:59 Oxycodone HCl (Roxicodone Immediate Rel Tab) 5-10mg prn moderate to sev... Q4H PRN PO 05/21/17 06:00 06/04/17 05:59 05/22/17 06:24 10 MG Acetaminophen (Tylenol Tab) 1,000 mg Q8H PRN PO 05/20/17 12:45 06/19/17 12:44 05/24/17 02:44 1,000 MG Acetaminophen 100 ml @ 400 mls/hr Q8H PRN IV 05/20/17 12:45 06/19/17 12:44 Hydroxyzine HCl (Vistaril Tab) 25 mg Q8H PRN PO 05/20/17 12:45 06/19/17 12:44 Al Hydroxide/Mg Hydroxide (Maalox Susp) 30 ml Q6H PRN PO 05/20/17 12:45 06/19/17 12:44 Famotidine (Pepcid Tab) 20 mg Q12 PRN PO 05/20/17 12:45 06/19/17 12:44 05/23/17 06:42 20 MG Diphenhydramine HCl (Benadryl Cap) 25 mg Q6H PRN PO 05/20/17 12:45 06/19/17 12:44 Bisacodyl (Dulcolax Supp) [address] 05/20/17 12:45 06/19/17 12:44 05/22/17 12:51 10 MG Magnesium Hydroxide (Milk Of Magnesia Susp) 30 ml DAILY PRN PO 05/20/17 12:45 06/19/17 12:44 05/22/17 14:02 30 ML Naloxone HCl (Narcan Inj) 0.1 mg Q5M PRN IV 05/21/17 06:00 06/20/17 05:59 Senna/Docusate Sodium (Senokot S Tab) 2 tab HS PO 05/20/17 21:00 06/19/17 20:59 05/23/17 20:44 2 TAB Sodium Biphosphate/ Sodium Phosphate (Fleet Enema) [address] 05/20/17 12:45 06/19/17 12:44 Baclofen (Lioresal Tab) 20 mg TID PO 05/20/17 14:00 06/19/17 13:59 05/24/17 07:32 20 MG Gabapentin (Neurontin Cap) 900 mg TID PO 05/20/17 14:00 06/19/17 13:59 05/24/17 07:30 900 MG Levothyroxine Sodium (Synthroid Tab) 112 mcg DAILYBB PO 05/21/17 06:00 06/20/17 05:59 05/24/17 06:32 112 MCG Morphine Sulfate (Oramorph Sr Tab) 60 mg Q12 PO 05/21/17 09:30 06/03/17 20:59 05/24/17 09:19 60 MG Ketorolac Tromethamine (Toradol Inj) 30 mg Q6H PRN IV 05/21/17 10:00 05/26/17 09:59 Future Hold Sodium Chloride 1,000 ml @ 100 mls/hr Q10H IV 05/22/17 03:00 06/21/17 02:59 05/24/17 05:00 100 MLS/HR Vancomycin HCl 1000 mg/Sodium Chloride 270 ml @ 125 mls/hr Q12H IV 05/23/17 02:00 06/02/17 01:59 05/24/17 02:42 125 MLS/HR Miscellaneous Information (Consult) 1 ea UD PRN N/A 05/22/17 15:30 06/21/17 15:29 Aztreonam 1000 mg/ Dextrose 110 ml @ 100 mls/hr Q8H IV 05/23/17 00:00 06/02/17 00:00 05/24/17 08:08 100 MLS/HR Metoprolol Tartrate (Lopressor Tab) 12.5 mg BID PO 05/24/17 09:00 06/22/17 20:59 05/24/17 07:33 12.5 MG
[2017-05-24] MEDS ORDERED: VANCOMYCIN TROUGH ONE (13:30)
[2017-05-24 13:33] VITALS: BP 106/66; PULSE 93; TEMP 37.1; O2SAT 95
--- NOTE | 2017-05-24 13:35 | Discharge Summary ---
Orthopedic Discharge Summary Admission Date/Reason May 20, 2017 at 12:46 Lumbar Spinal Stenosis. Discharge Date/Disposition May 24, 2017 Home Diagnosis Principal Diagnosis: Lumbar spinal stenosis Admission Physical Exam As per Admitting History & Physical. Hospital Course Patient underwent lumbar decompression fusion tolerated as well as taken to the orthopedic floor postoperatively. Postoperatively she struggled with an ileus for several days as well as tachycardia. This was ultimately resolved. Pain was well controlled. ALEXANDER drain decreased appropriately. Subsequently discharged home. Discharge orders and instructions found in the chart for further review. Discharge Instructions Please refer to the electronic Patient Visit Report (Discharge Instructions) for additional information.
== END 2017-05-24 14:30 | disposition home or self-care (01) | DRG 460 ==
LOC: C.ACU 07:29 → C.3E 12:46 → ENRESERV 13:32 → C.2T 05-23 13:59
PROVIDERS: ADMIT Orthopaedic Surgery Orthopaedic Surgery of the Spine; ATTEND Orthopaedic Surgery Orthopaedic Surgery of the Spine
PROC: 0SG30AJ Fusion of Lumbosacral Joint with Interbody Fusion Device, Posterior Approach, Anterior Column, Open Approach (ICD-10-PCS; principal; 2017-05-20 10:15)
PROC: 0RGA0AJ Fusion of Thoracolumbar Vertebral Joint with Interbody Fusion Device, Posterior Approach, Anterior Column, Open Approach (ICD-10-PCS; principal; 2017-05-20 10:15)
PROC: 0SG00JJ Fusion of Lumbar Vertebral Joint with Synthetic Substitute, Posterior Approach, Anterior Column, Open Approach (ICD-10-PCS; principal; 2017-05-20 10:15)
PROC: 0SG30JJ Fusion of Lumbosacral Joint with Synthetic Substitute, Posterior Approach, Anterior Column, Open Approach (ICD-10-PCS; principal; 2017-05-20 10:15)
PROC: 0SP304Z Removal of Internal Fixation Device from Lumbosacral Joint, Open Approach (ICD-10-PCS; principal; 2017-05-20 10:15)
PROC: 0RG Upper Joints, Fusion (ICD-10-PCS; principal; 2017-05-20 10:15)
DX: M48.07 Spinal stenosis, lumbosacral region (principal); K91.89 Other postprocedural complications and disorders of digestive system; I97.89 Other postprocedural complications and disorders of the circulatory system, not elsewhere classified; M48.05 Spinal stenosis, thoracolumbar region; Z88.6 Allergy status to analgesic agent; Z88.1 Allergy status to other antibiotic agents; Z88.0 Allergy status to penicillin; Z88.8 Allergy status to other drugs, medicaments and biological substances; Z88.2 Allergy status to sulfonamides; R50.9 Fever, unspecified